=== PATIENT | female | born 1990 | race Caucasian/White ===

== ENCOUNTER 2016-10-28 13:01 | Emergency (ER) | payer OTHER ==
[2016-10-28 16:08] LABS: MEAN CORPUSCULAR HEMOGLOBIN 28.2 pg (27.0-33.0); MEAN CORPUSCULAR HGB CONC 34.1 g/dl (32.0-36.5); MEAN CORPUSCULAR VOLUME 82.8 fl (80.0-96.0); RED CELL DISTRIBUTION WIDTH 11.9 % (11.5-14.5); WHITE BLOOD COUNT 9.3 K/mm3 (4.0-10.0)
--- NOTE | 2016-10-28 16:09 | REP ---
Chest x-ray: Two views. History: Edema. . Comparison study: January 01, 2016 . Findings: The lungs are well inflated and free of infiltrate. The pleural angles are sharp. The heart size is normal. Pulmonary vasculature is not increased. No significant bony abnormality is seen. Impression: Negative chest x-ray. Signed by Jayce Gan MD 10/28/2016 04:00 P
[2016-10-28 16:15] LABS: ALBUMIN 4.1 GM/DL (3.2-5.2); ALBUMIN/GLOBULIN RATIO 1.08 (1.00-1.93); ALKALINE PHOSPHATASE 91 U/L (45-117); ALT/SGPT 19 U/L (12-78); ANION GAP 5 MEQ/L (8-16); AST/SGOT 13 U/L (15-37); BILIRUBIN,DIRECT 0.1 MG/DL (0.0-0.2); BILIRUBIN,TOTAL 0.6 MG/DL (0.2-1.0); BLOOD UREA NITROGEN 7 MG/DL (7-18); CALCIUM LEVEL 9.1 MG/DL (8.5-10.1); CARBON DIOXIDE LEVEL 30 MEQ/L (21-32); CHLORIDE LEVEL 105 MEQ/L (98-107); CREATININE FOR GFR 0.88 MG/DL (0.55-1.02); GLOMERULAR FILTRATION RATE > 60.0 (>60); GLUCOSE, FASTING 86 MG/DL (70-105); POTASSIUM SERUM 3.8 MEQ/L (3.5-5.1); SODIUM LEVEL 140 MEQ/L (136-145); TOTAL PROTEIN 7.9 GM/DL (6.4-8.2)
--- NOTE | 2016-10-28 17:04 | EDDOCDS ---
Physician Documentation [facility] Name: Maxime Miranda Age: 26 yrs Sex: Female : 1990 Arrival Date: 10/28/2016 Time: 13:01 Bed I8 / 16 Private MD: NO PRIMARY PHYSICIAN, . Disposition: 10/28/16 16:52 Discharged to Home/Self Care. Impression: Edema, not elsewhere classified. - Condition is Stable. - Discharge Instructions: Edema. - Medication Reconciliation, Local Pharmacy Hours form. - Follow up: Private Physician; When: 4 - 5 days; Reason: Recheck today's complaints, Continuance of care. - Problem is an ongoing problem. - Symptoms are unchanged. - Notes: elevate legs limit fluid and salt intake Historical: - Allergies: Amoxicillin (Hives, Swelling); PENICILLINS (Hives, Swelling); Zithromax Z-Kang; - Home Meds: 1. Norvasc 10 mg Oral tab 1 tab once daily 2. trazodone 150 mg Oral tab nightly 3. Valium 5 mg Oral tab 1 tab 3 times per day - PMHx: Anxiety; Depression; Hypertension; Seizures; insomnia; - PSHx: ; - Social history: Smoking status: Patient states former smoker of tobacco. No barriers to communication noted, The patient speaks fluent Vietnamese, Speaks appropriately for age. - Family history: Not pertinent. - : The pt / caregiver states he / she is not on anticoagulants. Home medication list is obtained from the patient. - Exposure Risk Screening:: None identified. 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 3 in. (160.02 cm) (R); Pain 3/10; 13:04 Body Mass Index 44.29 (113.40 kg, 160.02 cm) gr2 MDM: 15:37 CBC Ordered. EDMS 15:38 BMP Ordered. EDMS 15:38 BNP Ordered. EDMS 15:38 Liver Profile Ordered. EDMS 15:38 ECG WITH READING ER PHYS+CARDIAG ordered. EDMS 15:39 Chest, 2 View (pa\E\lat) Ordered. EDMS 15:42 Financial registration complete. lg 15:46 [facility] Payment Agreement was scanned into [employer] and attached to record. lg 16:48 BMP Reviewed. ke 16:48 Liver Profile Reviewed. ke 16:48 CBC Reviewed. ke 16:48 BNP Reviewed. ke 16:48 Chest, 2 View (pa\E\lat) Reviewed. ke Signatures: Dispatcher [employer] EDMS Shelby Soliman, Reg Reg lg Jasbir Durham, APPLICATION CONSULTANT APPLICATION CONSULTANT Brad Titus RN RN mlb1 Aline LuoRN RN dsf The chart was reviewed and I authenticate all verbal orders and agree with the evaluation and treatment provided.Attachments: 15:46 [facility] Payment Agreement lg MTDD
--- NOTE | 2016-10-28 17:04 | EDDOCDS ---
Nurse's Notes [facility] Name: Maxime Miranda Age: 26 yrs Sex: Female : 1990 Arrival Date: 10/28/2016 Time: 13:01 Bed I8 / 16 Private MD: NO PRIMARY PHYSICIAN, . Diagnosis: Edema, not elsewhere classified Presentation: 10/28 13:10 Presenting complaint: Patient states: Bilateral lower leg swelling over the past two mlb1 weeks. The patients lower extremity appears normal on examination. Adult Sepsis Screening: The patient does not have new or worsening altered mentation. Patient's respiratory rate is less than 22. Systolic blood pressure is greater than 100. Patient has a qSOFA score of 0- Negative Sepsis Screen. Suicide/Homicide risk assessment- the patient denies having any suicidal and/or homicidal ideations and does not present with any other emotional, behavioral or mental health complaints. Status: Patient is not a industrial services worker or dependent. Transition of care: patient was not received from another setting of care. 13:10 Acuity: CRISTOPHER Level 3 mlb1 13:10 Method Of Arrival: Walkin/Carried/Asstd mlb1 Triage Assessment: 13:12 General: Appears in no apparent distress, comfortable, Behavior is appropriate for age, mlb1 cooperative. Pain: Location: right leg and left leg Pain currently is 8 out of 10 on a pain scale. Quality of pain is described as "discomfort". HIV screening NA for this visit Offered previously. 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 Norvasc 10 mg Oral tab 1 tab once daily 2. trazodone 150 mg Oral tab nightly 3. Valium 5 mg Oral tab 1 tab 3 times per day - PMHx: Anxiety; Depression; Hypertension; Seizures; insomnia; - PSHx: ; - Social history: Smoking status: Patient states former smoker of tobacco. No barriers to communication noted, The patient speaks fluent Albanian, Speaks appropriately for age. - Family history: Not pertinent. - : The pt / caregiver states he / she is not on anticoagulants. Home medication list is obtained from the patient. - Exposure Risk Screening:: None identified. Screenin:03 Screening information is obtained from the patient. Fall risk: No risks identified. dsf Assistance ADL's: requires no assistance with activities of daily living. Abuse/DV Screen: The patient / caregiver reports he/she is: not in a situation that causes fear, pain or injury. Nutritional screening: No deficits noted. Advance Directives: Currently, there is no health care proxy. home support is adequate. Assessment: 15:18 General: Appears in no apparent distress, Behavior is appropriate for age, cooperative. dsf General: Reports 20 lb weight gain in the past 2 months has not changed her diet. Pain: Location: bilateral calf Pain currently is 2 out of 10 on a pain scale. Quality of pain is described as burning, feel like they are going to burst. Neurological: Level of Consciousness is awake, alert, Oriented to person, place, time. Cardiovascular: nonpitting bilateral lower leg swelling . Respiratory: Airway is patent Respiratory effort is even, unlabored, Respiratory pattern is regular, symmetrical, Reports shortness of breath on exertion since 2 months ago. Derm: Skin is pink, warm & dry. Musculoskeletal: Capillary refill < 3 seconds No deformity noted Signs and Symptoms of Compartment Syndrome: no signs of compartment syndrome. 17:02 Adult Sepsis Screening: The patient does not have new or worsening altered mentation. dsf Patient's respiratory rate is less than 22. Systolic blood pressure is greater than 100. Patient has a qSOFA score of 0- Negative Sepsis Screen. General: Appears in no apparent distress, comfortable, Behavior is appropriate for age, cooperative. Neurological: Level of Consciousness is awake, alert. Cardiovascular: Capillary refill < 3 seconds. Respiratory: Airway is patent Respiratory effort is even, unlabored, Respiratory pattern is regular, symmetrical. Derm: Skin is pink, warm & dry. Vital Signs: 13:04 BP 116 / 78; Pulse 68; Resp 18; Temp 97.9(O); Pulse Ox 98% on R/A; Weight 113.4 kg (R); gr2 Height 5 ft. 3 in. (160.02 cm) (R); Pain 3/10; 13:04 Body Mass Index 44.29 (113.40 kg, 160.02 cm) gr2 Vitals: 13:04 Log In Time: October 28, 2016 at 13:04. gr2 ED Course: 13:03 Patient visited by Cosme Chun. gr2 13:03 NO FAM PHY is Private Physician. gr2 13:03 NO PRIMARY PHYSICIAN, . is Private Physician. gr2 13:03 Patient moved to Waiting gr2 13:07 Patient visited by Cosme Chun. gr2 13:07 Patient moved to Pre RCE gr2 13:10 Patient visited by Brad Asif, RN. mlb1 13:11 Triage Initiated mlb1 13:13 Patient visited by Brad Asif, RN. mlb1 15:13 Lona Velez, FRANKLYN is Primary Nurse. mlb1 15:13 Jenelle Murray,FRANKLYN is Primary Nurse. mlb1 15:13 Patient moved to I8 / 16 mlb1 15:16 [facility] ke 15:16 Patient visited by Jasbir Durham FNP. ke 15:16 Patient visited by Jasbir Durham FNP. ke 15:20 Patient visited by Aline Luo RN. dsf 15:46 [facility] Payment Agreement was scanned into [employer] and attached to record. lg 15:47 Patient visited by Jasbir Durham FNP. ke 15:47 Liver Profile Sent. jmb 15:47 BNP Sent. jmb 15:47 BMP Sent. jmb 15:47 CBC Sent. jmb 15:50 EKG done. (by ED staff). Reviewed by Jasbir SAAVEDRA. ct3 16:06 Patient visited by Zahra Ozuna PCA. ct3 16:27 Chest, 2 View (pa\\E\\lat) Returned. EDMS 16:36 Patient visited by Jasbir Durham FNP. ke 17:03 The patient / caregiver is instructed regarding the plan of care and ED course. dsf 17:03 No IV's were initiated during this patient's visit. No procedures done that require dsf assistance. Order Results: Lab Order: CBC; SPEC'M 10/28/16 15:44 Test: WHITE BLOOD COUNT; Value: 9.3; Range: 4.0-10.0; Units: K/mm3; Status: F Test: RED BLOOD COUNT; Value: 5.09; Range: 4.00-5.40; Units: M/mm3; Status: F Test: HEMOGLOBIN; Value: 14.4; Range: 12.0-16.0; Units: g/dl; Status: F Test: HEMATOCRIT; Value: 42.1; Range: 36.0-47.0; Units: %; Status: F Test: MEAN CORPUSCULAR VOLUME; Value: 82.8; Range: 80.0-96.0; Units: fl; Status: F Test: MEAN CORPUSCULAR HEMOGLOBIN; Value: 28.2; Range: 27.0-33.0; Units: pg; Status: F Test: MEAN CORPUSCULAR HGB CONC; Value: 34.1; Range: 32.0-36.5; Units: g/dl; Status: F Test: RED CELL DISTRIBUTION WIDTH; Value: 11.9; Range: 11.5-14.5; Units: %; Status: F Test: PLATELET COUNT, AUTOMATED; Value: 205; Range: 150-450; Units: k/mm3; Status: F Lab Order: [facility]; [facility] 10/28/16 15:44 Test: GLUCOSE, FASTING; Value: 86; Range: 70-105; Units: MG/DL; Status: F Test: BLOOD UREA NITROGEN; Value: 7; Range: 7-18; Units: MG/DL; Status: F Test: CREATININE FOR GFR; Value: 0.88; Range: 0.55-1.02; Units: MG/DL; Status: F Test: GLOMERULAR FILTRATION RATE; Value: > 60.0; Range: >60; Status: F Test: SODIUM LEVEL; Value: 140; Range: 136-145; Units: MEQ/L; Status: F Test: POTASSIUM SERUM; Value: 3.8; Range: 3.5-5.1; Units: MEQ/L; Status: F Test: CHLORIDE LEVEL; Value: 105; Range: 98-107; Units: MEQ/L; Status: F Test: CARBON DIOXIDE LEVEL; Value: 30; Range: 21-32; Units: MEQ/L; Status: F Test: ANION GAP; Value: 5; Range: 8-16; Abnormal: Below low normal; Units: MEQ/L; Status: F Test: CALCIUM LEVEL; Value: 9.1; Range: 8.5-10.1; Units: MG/DL; Status: F Test Note: ; Units are mL/min/1.73 m2 Chronic Kidney Disease Staging per NKF: Stage I & II GFR >=60 Normal to Mildly Decreased Stage III GFR 30-59 Moderately Decreased Stage IV GFR 15-29 Severely Decreased Stage V GFR <15 Very Little GFR Left ESRD GFR <15 on MEDIA SERVICES DIRECTOR Lab Order: BNP; SPEC10/28/16 15:44 Test: BRAIN NATRIURETIC PEPTIDE; Value: 24.4; Range: <100; Units: PG/ML; Status: F Lab Order: Liver Profile; [facility] 15[facility] Test: AST/SGOT; Value: 13; Range: 15-37; Abnormal: Below low normal; Units: U/L; Status: F Test: ALT/SGPT; Value: 19; Range: 12-78; Units: U/L; Status: F Test: ALKALINE PHOSPHATASE; Value: 91; Range: 45-117; Units: U/L; Status: F Test: BILIRUBIN,TOTAL; Value: 0.6; Range: 0.2-1.0; Units: MG/DL; Status: F Test: BILIRUBIN,DIRECT; Value: 0.1; Range: 0.0-0.2; Units: MG/DL; Status: F Test: TOTAL PROTEIN; Value: 7.9; Range: 6.4-8.2; Units: GM/DL; Status: F Test: ALBUMIN; Value: 4.1; Range: 3.2-5.2; Units: GM/DL; Status: F Test: ALBUMIN/GLOBULIN RATIO; Value: 1.08; Range: 1.00-1.93; Status: F Radiology Order: Chest, 2 View (pa\\E\\lat) Test: Chest, 2 View (pa\\E\\lat) REASON FOR EXAMINATION: edema; Chest x-ray: Two views.; ; History: Edema. .; ; Comparison study: January 01, 2016 .; ; Findings: The lungs are well inflated and free of infiltrate. The pleural; angles are sharp. The heart size is normal. Pulmonary vasculature is not; increased. No significant bony abnormality is seen.; ; Impression:; ; Negative chest x-ray.; ; ; Signed by; Jayce Gan MD 10/28/2016 04:00 P; Outcome: 16:52 Discharge ordered by Provider. landy 17:03 Discharge Assessment: Patient awake, alert and oriented x 3. No cognitive and/or dsf functional deficits noted. Patient verbalized understanding of disposition instructions. patient administered narcotics - no. The following High Risk Discharge criteria are identified: None. Discharged to home ambulatory. Condition: stable. Discharge instructions given to patient, Instructed on discharge instructions, follow up and referral plans. Demonstrated understanding of instructions, Pt was receptive of discharge instructions/ teaching. No special radiology studies were completed. Property sent home with patient. 17:03 Patient left the ED. dsf Signatures: Dispatcher [employer] EDMS Shelby Soliman, Flakito Reg lg Jasbir Durham, SUMMER SCHOOL COORDINATOR SUMMER SCHOOL COORDINATOR Brad Titus RN RN mlb1 Zahra Ozuna, REGIONAL PSYCHIATRIC DIRECTOR REGIONAL PSYCHIATRIC DIRECTOR ct3 Aline Luo,RN RN dsf Cosme Chun gr2 Srinivas Morales,RN RN portiab MTDD
--- NOTE | 2016-10-28 21:58 | ECGEPIP ---
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
--- NOTE | 2016-10-30 18:04 | EDDOCDS ---
Physician Documentation [facility] Name: Maxime Miranda Age: 26 yrs Sex: Female : 1990 Arrival Date: 10/28/2016 Time: 13:01 Bed I8 / 16 Private MD: NO PRIMARY PHYSICIAN, . Disposition: 10/28/16 16:52 Discharged to Home/Self Care. Impression: Edema, not elsewhere classified. - Condition is Stable. - Discharge Instructions: Edema. - Medication Reconciliation, Local Pharmacy Hours form. - Follow up: Private Physician; When: 4 - 5 days; Reason: Recheck today's complaints, Continuance of care. - Problem is an ongoing problem. - Symptoms are unchanged. - Notes: elevate legs limit fluid and salt intake Historical: - Allergies: Amoxicillin (Hives, Swelling); PENICILLINS (Hives, Swelling); Zithromax Z-Kang; - Home Meds: 1. Norvasc 10 mg Oral tab 1 tab once daily 2. trazodone 150 mg Oral tab nightly 3. Valium 5 mg Oral tab 1 tab 3 times per day - PMHx: Anxiety; Depression; Hypertension; Seizures; insomnia; - PSHx: ; - Social history: Smoking status: Patient states former smoker of tobacco. No barriers to communication noted, The patient speaks fluent Amharic, Speaks appropriately for age. - Family history: Not pertinent. - : The pt / caregiver states he / she is not on anticoagulants. Home medication list is obtained from the patient. - Exposure Risk Screening:: None identified. 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 3 in. (160.02 cm) (R); Pain 3/10; 13:04 Body Mass Index 44.29 (113.40 kg, 160.02 cm) gr2 MDM: 15:37 CBC Ordered. EDMS 15:38 BMP Ordered. EDMS 15:38 BNP Ordered. EDMS 15:38 Liver Profile Ordered. EDMS 15:38 ECG WITH READING ER PHYS+CARDIAG ordered. EDMS 15:39 Chest, 2 View (pa\E\lat) Ordered. EDMS 15:42 Financial registration complete. lg 15:46 [facility] [place] Agreement was scanned into [employer] and attached to record. lg 16:48 BMP Reviewed. ke 16:48 Liver Profile Reviewed. ke 16:48 CBC Reviewed. ke 16:48 BNP Reviewed. ke 16:48 Chest, 2 View (pa\E\lat) Reviewed. ke 10/29 11:58 T-Sheet-- Draft Copy was scanned into [employer] and attached to record. gb 11:59 ECG/EKG was scanned into [employer] and attached to record. gb Signatures: Dispatcher [employer] EDMS Bernice Brambila, Reg Reg gb Shelby Soliman, Reg Reg lg Jasbir Durham, ACTIVITY COORDINATOR ACTIVITY COORDINATOR Brad Titus, RN RN mlAline McmullenRN RN dsf The chart was reviewed and I authenticate all verbal orders and agree with the evaluation and treatment provided.Attachments: 10/28 15:46 [facility] [place] [place] Agreement 10/29 11:58 T-Sheet-- Draft Copy gb 11:59 ECG/EKG gb Chart Complete MTDD
--- NOTE | 2016-10-30 18:04 | EDDOCDS ---
Nurse's Notes [facility] Name: Maxime Miranda Age: 26 yrs Sex: Female : 1990 Arrival Date: 10/28/2016 Time: 13:01 Bed I8 / 16 Private MD: NO PRIMARY PHYSICIAN, . Diagnosis: Edema, not elsewhere classified Presentation: 10/28 13:10 Presenting complaint: Patient states: Bilateral lower leg swelling over the past two mlb1 weeks. The patients lower extremity appears normal on examination. Adult Sepsis Screening: The patient does not have new or worsening altered mentation. Patient's respiratory rate is less than 22. Systolic blood pressure is greater than 100. Patient has a qSOFA score of 0- Negative Sepsis Screen. Suicide/Homicide risk assessment- the patient denies having any suicidal and/or homicidal ideations and does not present with any other emotional, behavioral or mental health complaints. Status: Patient is not a service station attendant or dependent. Transition of care: patient was not received from another setting of care. 13:10 Acuity: CRISTOPHER Level 3 mlb1 13:10 Method Of Arrival: Walkin/Carried/Asstd mlb1 Triage Assessment: 13:12 General: Appears in no apparent distress, comfortable, Behavior is appropriate for age, mlb1 cooperative. Pain: Location: right leg and left leg Pain currently is 8 out of 10 on a pain scale. Quality of pain is described as "discomfort". HIV screening NA for this visit Offered previously. 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 Norvasc 10 mg Oral tab 1 tab once daily 2. trazodone 150 mg Oral tab nightly 3. Valium 5 mg Oral tab 1 tab 3 times per day - PMHx: Anxiety; Depression; Hypertension; Seizures; insomnia; - PSHx: ; - Social history: Smoking status: Patient states former smoker of tobacco. No barriers to communication noted, The patient speaks fluent Latvian, Speaks appropriately for age. - Family history: Not pertinent. - : The pt / caregiver states he / she is not on anticoagulants. Home medication list is obtained from the patient. - Exposure Risk Screening:: None identified. Screenin:03 Screening information is obtained from the patient. Fall risk: No risks identified. dsf Assistance ADL's: requires no assistance with activities of daily living. Abuse/DV Screen: The patient / caregiver reports he/she is: not in a situation that causes fear, pain or injury. Nutritional screening: No deficits noted. Advance Directives: Currently, there is no health care proxy. home support is adequate. Assessment: 15:18 General: Appears in no apparent distress, Behavior is appropriate for age, cooperative. dsf General: Reports 20 lb weight gain in the past 2 months has not changed her diet. Pain: Location: bilateral calf Pain currently is 2 out of 10 on a pain scale. Quality of pain is described as burning, feel like they are going to burst. Neurological: Level of Consciousness is awake, alert, Oriented to person, place, time. Cardiovascular: nonpitting bilateral lower leg swelling . Respiratory: Airway is patent Respiratory effort is even, unlabored, Respiratory pattern is regular, symmetrical, Reports shortness of breath on exertion since 2 months ago. Derm: Skin is pink, warm & dry. Musculoskeletal: Capillary refill < 3 seconds No deformity noted Signs and Symptoms of Compartment Syndrome: no signs of compartment syndrome. 17:02 Adult Sepsis Screening: The patient does not have new or worsening altered mentation. dsf Patient's respiratory rate is less than 22. Systolic blood pressure is greater than 100. Patient has a qSOFA score of 0- Negative Sepsis Screen. General: Appears in no apparent distress, comfortable, Behavior is appropriate for age, cooperative. Neurological: Level of Consciousness is awake, alert. Cardiovascular: Capillary refill < 3 seconds. Respiratory: Airway is patent Respiratory effort is even, unlabored, Respiratory pattern is regular, symmetrical. Derm: Skin is pink, warm & dry. Vital Signs: 13:04 BP 116 / 78; Pulse 68; Resp 18; Temp 97.9(O); Pulse Ox 98% on R/A; Weight 113.4 kg (R); gr2 Height 5 ft. 3 in. (160.02 cm) (R); Pain 3/10; 13:04 Body Mass Index 44.29 (113.40 kg, 160.02 cm) gr2 Vitals: 13:04 Log In Time: October 28, 2016 at 13:04. gr2 ED Course: 13:03 Patient visited by Cosme Chnu. gr2 13:03 NO FAM PHY is Private Physician. gr2 13:03 NO PRIMARY PHYSICIAN, . is Private Physician. gr2 13:03 Patient moved to Waiting gr2 13:07 Patient visited by Cosme Chun. gr2 13:07 Patient moved to Pre RCE gr2 13:10 Patient visited by Brad Asif, RN. mlb1 13:11 Triage Initiated mlb1 13:13 Patient visited by Brad Asif, RN. mlb1 15:13 Lona Velez, FRANKLYN is Primary Nurse. mlb1 15:13 Jenelle Murray,FRANKLYN is Primary Nurse. mlb1 15:13 Patient moved to I8 / 16 mlb1 15:16 [facility] ke 15:16 Patient visited by Jasbir Durham FNP. ke 15:16 Patient visited by Jasbir Durham FNP. ke 15:20 Patient visited by Aline Luo RN. dsf 15:46 [facility] [place] Agreement was scanned into [employer] and attached to record. lg 15:47 Patient visited by Jasbir Durham FNP. ke 15:47 Liver Profile Sent. jmb 15:47 BNP Sent. jmb 15:47 BMP Sent. jmb 15:47 CBC Sent. jmb 15:50 EKG done. (by ED staff). Reviewed by Jasbir SAAVEDRA. ct3 16:06 Patient visited by Zahra Ozuna PCA. ct3 16:27 Chest, 2 View (pa\\E\\lat) Returned. EDMS 16:36 Patient visited by Jasbir Durham FNP. ke 17:03 The patient / caregiver is instructed regarding the plan of care and ED course. dsf 17:03 No IV's were initiated during this patient's visit. No procedures done that require dsf assistance. 22:11 EKG-ADULT Returned. EDMS 10/29 11:58 T-Sheet-- Draft Copy was scanned into [employer] and attached to record. gb 11:59 ECG/EKG was scanned into [employer] and attached to record. gb Order Results: Lab Order: CBC; SPEC'M 10/28/16 15:44 Test: WHITE BLOOD COUNT; Value: 9.3; Range: 4.0-10.0; Units: K/mm3; Status: F Test: RED BLOOD COUNT; Value: 5.09; Range: 4.00-5.40; Units: M/mm3; Status: F Test: HEMOGLOBIN; Value: 14.4; Range: 12.0-16.0; Units: g/dl; Status: F Test: HEMATOCRIT; Value: 42.1; Range: 36.0-47.0; Units: %; Status: F Test: MEAN CORPUSCULAR VOLUME; Value: 82.8; Range: 80.0-96.0; Units: fl; Status: F Test: MEAN CORPUSCULAR HEMOGLOBIN; Value: 28.2; Range: 27.0-33.0; Units: pg; Status: F Test: MEAN CORPUSCULAR HGB CONC; Value: 34.1; Range: 32.0-36.5; Units: g/dl; Status: F Test: RED CELL DISTRIBUTION WIDTH; Value: 11.9; Range: 11.5-14.5; Units: %; Status: F Test: PLATELET COUNT, AUTOMATED; Value: 205; Range: 150-450; Units: k/mm3; Status: F Lab Order: [facility]; SPEC'M 10/28/16 15:44 Test: GLUCOSE, FASTING; Value: 86; Range: 70-105; Units: MG/DL; Status: F Test: BLOOD UREA NITROGEN; Value: 7; Range: 7-18; Units: MG/DL; Status: F Test: CREATININE FOR GFR; Value: 0.88; Range: 0.55-1.02; Units: MG/DL; Status: F Test: GLOMERULAR FILTRATION RATE; Value: > 60.0; Range: >60; Status: F Test: SODIUM LEVEL; Value: 140; Range: 136-145; Units: MEQ/L; Status: F Test: POTASSIUM SERUM; Value: 3.8; Range: 3.5-5.1; Units: MEQ/L; Status: F Test: CHLORIDE LEVEL; Value: 105; Range: 98-107; Units: MEQ/L; Status: F Test: CARBON DIOXIDE LEVEL; Value: 30; Range: 21-32; Units: MEQ/L; Status: F Test: ANION GAP; Value: 5; Range: 8-16; Abnormal: Below low normal; Units: MEQ/L; Status: F Test: CALCIUM LEVEL; Value: 9.1; Range: 8.5-10.1; Units: MG/DL; Status: F Test Note: ; Units are mL/min/1.73 m2 Chronic Kidney Disease Staging per NKF: Stage I & II GFR >=60 Normal to Mildly Decreased Stage III GFR 30-59 Moderately Decreased Stage IV GFR 15-29 Severely Decreased Stage V GFR <15 Very Little GFR Left ESRD GFR <15 on LOGGING TRACTOR OPERATOR SWAMP Lab Order: BNP; SPEC'M 10/28/16 15:44 Test: BRAIN NATRIURETIC PEPTIDE; Value: 24.4; Range: <100; Units: PG/ML; Status: F Lab Order: Liver Profile; SPEC'M 10/28/16 15:44 Test: AST/SGOT; Value: 13; Range: 15-37; Abnormal: Below low normal; Units: U/L; Status: F Test: ALT/SGPT; Value: 19; Range: 12-78; Units: U/L; Status: F Test: ALKALINE PHOSPHATASE; Value: 91; Range: 45-117; Units: U/L; Status: F Test: BILIRUBIN,TOTAL; Value: 0.6; Range: 0.2-1.0; Units: MG/DL; Status: F Test: BILIRUBIN,DIRECT; Value: 0.1; Range: 0.0-0.2; Units: MG/DL; Status: F Test: TOTAL PROTEIN; Value: 7.9; Range: 6.4-8.2; Units: GM/DL; Status: F Test: ALBUMIN; Value: 4.1; Range: 3.2-5.2; Units: GM/DL; Status: F Test: ALBUMIN/GLOBULIN RATIO; Value: 1.08; Range: 1.00-1.93; Status: F Radiology Order: EKG-ADULT Test: EKG-ADULT REASON FOR EXAMINATION: Shortness of Breath; Stationary ECG Study; [facility] - ED; ; Test Date: 2016-10-28; Pat Name: MAXIME MIRANDA Department:; Room: -; 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 .; ; Comparison study: January 01, 2016 .; ; Findings: The lungs are well inflated and free of infiltrate. The pleural; angles are sharp. The heart size is normal. Pulmonary vasculature is not; increased. No significant bony abnormality is seen.; ; Impression:; ; Negative chest x-ray.; ; ; Signed by; Jayce Gan MD 10/28/2016 04:00 P; Outcome: 10/28 16:52 Discharge ordered by Provider. landy 17:03 Discharge Assessment: Patient awake, alert and oriented x 3. No cognitive and/or dsf functional deficits noted. Patient verbalized understanding of disposition instructions. patient administered narcotics - no. The following High Risk Discharge criteria are identified: None. Discharged to home ambulatory. Condition: stable. Discharge instructions given to patient, Instructed on discharge instructions, follow up and referral plans. Demonstrated understanding of instructions, Pt was receptive of discharge instructions/ teaching. No special radiology studies were completed. Property sent home with patient. 17:03 Patient left the ED. dsf Signatures: Dispatcher [employer] EDMS Bernice Brambila, Reg Reg gb Shelby Soliman, Reg Reg lg Jasbir Durham, POWER SYSTEM DISPATCHER POWER SYSTEM DISPATCHER Brad Titus RN RN mlb1 Zahra Ozuna, SITE ADMINISTRATOR SITE ADMINISTRATOR ct3 Aline Luo RN RN dsf Cosme Chun gr2 Srinivas Morales RN RN jmb Chart Complete MTDD
--- NOTE | 2016-10-30 18:04 | EDDOCDS ---
Physician Documentation [facility] Name: Maxime Miranda Age: 26 yrs Sex: Female : 1990 Arrival Date: 10/28/2016 Time: 13:01 Bed I8 / 16 Private MD: NO PRIMARY PHYSICIAN, . Disposition: 10/28/16 16:52 Discharged to Home/Self Care. Impression: Edema, not elsewhere classified. - Condition is Stable. - Discharge Instructions: Edema. - Medication Reconciliation, Local Pharmacy Hours form. - Follow up: Private Physician; When: 4 - 5 days; Reason: Recheck today's complaints, Continuance of care. - Problem is an ongoing problem. - Symptoms are unchanged. - Notes: elevate legs limit fluid and salt intake Historical: - Allergies: Amoxicillin (Hives, Swelling); PENICILLINS (Hives, Swelling); Zithromax Z-Kang; - Home Meds: 1. Norvasc 10 mg Oral tab 1 tab once daily 2. trazodone 150 mg Oral tab nightly 3. Valium 5 mg Oral tab 1 tab 3 times per day - PMHx: Anxiety; Depression; Hypertension; Seizures; insomnia; - PSHx: ; - Social history: Smoking status: Patient states former smoker of tobacco. No barriers to communication noted, The patient speaks fluent Georgian, Speaks appropriately for age. - Family history: Not pertinent. - : The pt / caregiver states he / she is not on anticoagulants. Home medication list is obtained from the patient. - Exposure Risk Screening:: None identified. 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 3 in. (160.02 cm) (R); Pain 3/10; 13:04 Body Mass Index 44.29 (113.40 kg, 160.02 cm) gr2 MDM: 15:37 CBC Ordered. EDMS 15:38 BMP Ordered. EDMS 15:38 BNP Ordered. EDMS 15:38 Liver Profile Ordered. EDMS 15:38 ECG WITH READING ER PHYS+CARDIAG ordered. EDMS 15:39 Chest, 2 View (pa\E\lat) Ordered. EDMS 15:42 Financial registration complete. lg 15:46 [facility] [place] was scanned into [employer] and attached to record. lg 16:48 BMP Reviewed. ke 16:48 Liver Profile Reviewed. ke 16:48 CBC Reviewed. ke 16:48 BNP Reviewed. ke 16:48 Chest, 2 View (pa\E\lat) Reviewed. ke 10/29 11:58 T-Sheet-- Draft Copy was scanned into [employer] and attached to record. gb 11:59 ECG/EKG was scanned into [employer] and attached to record. gb Signatures: Dispatcher [employer] EDMS Bernice Brabmila, Reg Reg gb Shelby Soliman, Reg Reg lg Jasbir Durham, WATERPROOF BAG SEWER WATERPROOF BAG SEWER Brad Titus, RN RN mlAline McmullenRN RN dsf The chart was reviewed and I authenticate all verbal orders and agree with the evaluation and treatment provided.Attachments: 10/28 15:46 [facility] [place] Agreement 10/29 11:58 T-Sheet-- Draft Copy gb 11:59 ECG/EKG gb Chart Complete MTDD
== END 2016-10-28 17:03 | disposition home or self-care (01) ==
LOC: M ED 13:01
DX: R60.0 Localized edema (principal); I10 Essential (primary) hypertension; F32.9 Major depressive disorder, single episode, unspecified; F41.9 Anxiety disorder, unspecified; R56.9 Unspecified convulsions; G47.00 Insomnia, unspecified; Z79.899 Other long term (current) drug therapy; Z88.0 Allergy status to penicillin; Z88.1 Allergy status to other antibiotic agents; Z87.891 Personal history of nicotine dependence

== ENCOUNTER → 2016-12-21 | Outpatient (CLI) | payer OTHER ==
[2016-12-21 15:25] LABS: FREE T4 0.96 NG/DL (0.76-1.46)
== END ==
LOC: M LAB 13:38
PROVIDERS: ATTEND Family Medicine Addiction Medicine
DX: R63.5 Abnormal weight gain (principal)

== ENCOUNTER 2017-03-09 20:50 | Emergency (ER) | payer OTHER ==
[2017-03-09] MEDS ORDERED: HYDR25TA6 (21:01)
[2017-03-09] MEDS ORDERED: DIAZ5TAB (21:01)
[2017-03-09] MEDS ORDERED: IBUP-1114 PO (21:01)
[2017-03-09] MEDS ORDERED: LEVO75TA4 (21:01)
[2017-03-09] MEDS ORDERED: TRAZ1TAB14 (21:01)
[2017-03-09] MEDS ORDERED: PERCOCET 5MG/325MG TAB PO ONE (21:30)
[2017-03-09] MEDS ORDERED: NS 1,000 ML IV SCH (22:20)
[2017-03-09] MEDS ORDERED: KETOROLAC 30 MG/ML VIAL (J1885) IV ONE (22:30)
[2017-03-09] MEDS ORDERED: MORPHINE 2 MG/ML 1ML SYRINGE IV PRN (22:30)
[2017-03-09] MEDS ORDERED: ONDANSETRON 4MG/2ML VIAL (J2405) IV ONE (22:30)
--- NOTE | 2017-03-09 22:50 | REPUSA ---
Clinical history: Pain. Findings: Real-time transabdominal and transvaginal ultrasound images of the pelvis were obtained. A retroverted uterus is noted, measuring 11.8 x 5.0 x 6.4 cm. The uterus demonstrates normal echotextur e and echogenicity. The endometrial stripe measures 9 mm and is within normal limits. The right ovary measures 3.8 x 3.1 x 4.1 c. There is a simple right ovarian cyst measuring 2.1 x 5.1 x 1.9 cm. The l eft ovary measures 2.9 x 1.9 x 3.1 cm. No adnexal masses are seen. Color Doppler flow is seen withi n both ovaries. There is no evidence of free fluid. Impression: Simple left ovarian cyst. Otherwise unremarkable ultrasound examination of the pelvis.
[2017-03-09 23:08] LABS: BASO # 0.1 K/mm3 (0.0-0.2); BASO % 0.5 % (0.0-1.0); EOS # 0.3 K/mm3 (0.0-0.50); EOS % 2.1 % (0.0-3.0); LARGE UNSTAINED CELL # 0.2 K/mm3 (0.0-0.4); LARGE UNSTAINED CELL % 1.5 % (0.0-4.0); LYMPH # 3.4 K/mm3 (1.5-6.5); LYMPH % 24.1 % (24.0-44.0); MEAN CORPUSCULAR HEMOGLOBIN 28.4 pg (27.0-33.0); MEAN CORPUSCULAR HGB CONC 35.1 g/dl (32.0-36.5); MEAN CORPUSCULAR VOLUME 80.9 fl (80.0-96.0); MONO # 0.7 K/mm3 (0.0-0.8); MONO % 4.9 % (0.0-5.0); NEUTROPHILS % 66.9 % (36.0-66.0); PLATELET COUNT, AUTOMATED 265 k/mm3 (150-450); RED CELL DISTRIBUTION WIDTH 12.7 % (11.5-14.5); WHITE BLOOD COUNT 13.4 K/mm3 (4.0-10.0)
[2017-03-09 23:20] LABS: INR 0.95
[2017-03-09 23:40] LABS: ALBUMIN 3.9 GM/DL (3.2-5.2); ALBUMIN/GLOBULIN RATIO 1.08 (1.00-1.93); ALKALINE PHOSPHATASE 90 U/L (45-117); ALT/SGPT 18 U/L (12-78); ANION GAP 8 MEQ/L (8-16); AST/SGOT 12 U/L (15-37); BILIRUBIN,DIRECT < 0.1 MG/DL (0.0-0.2); BILIRUBIN,TOTAL 0.4 MG/DL (0.2-1.0); BLOOD UREA NITROGEN 7 MG/DL (7-18); CALCIUM LEVEL 9.4 MG/DL (8.5-10.1); CARBON DIOXIDE LEVEL 29 MEQ/L (21-32); CHLORIDE LEVEL 99 MEQ/L (98-107); CREATININE FOR GFR 0.81 MG/DL (0.55-1.02); GLOMERULAR FILTRATION RATE > 60.0 (>60); GLUCOSE, FASTING 92 MG/DL (70-105); POTASSIUM SERUM 3.5 MEQ/L (3.5-5.1); SODIUM LEVEL 136 MEQ/L (136-145); TOTAL PROTEIN 7.5 GM/DL (6.4-8.2)
--- NOTE | 2017-03-09 23:40 | REPUSA ---
CT of the abdomen and pelvis without contrast Clinical statement: Pain. Technique: Multiple axial CT images were obtained from the base of the lungs to the floor of the pelv is utilizing 5 mm axial slices without administration of contrast. Coronal and sagittal reconstructio ns were also obtained. Comparison: 05/16/2015. Findings: Chest: The visualized lung bases are clear. Abdomen: The kidneys are normal in size bilaterally. There is no evidence of hydronephrosis or nephro lithiasis. The liver, spleen, pancreas, gallbladder and adrenal glands are unremarkable. The aorta de monstrates normal caliber and contour. There is no abdominal lymphadenopathy or ascites. Pelvis: The bowel is unremarkable, with no obstructive or inflammatory changes The appendix is normal . The urinary bladder is within normal limits. There is no pelvic lymphadenopathy or ascites. The oth er pelvic structures appear unremarkable. Bones: There are no suspicious osseous abnormalities seen. Impression: Unremarkable CT examination of the abdomen and pelvis.
[2017-03-10] MEDS ORDERED: NAPR500T PO (00:15)
[2017-03-10] MEDS ORDERED: ZOFR4TAB3 PO (00:15)
[2017-03-10 00:24] VITALS: BP 114/76
[2017-03-10] MEDS ORDERED: NORCO 5/325MG TABLET (BULK FOR ED) PO ONE (00:30)
[2017-07-20] MEDS ORDERED: VENL75CA47 (20:36)
[2017-07-20] MEDS ORDERED: AMLO5TAB2 (20:36)
[2017-07-20] MEDS ORDERED: LEVO100T5 (20:36)
[2017-07-20] MEDS ORDERED: HYDR25TAB (20:36)
== END 2017-03-10 00:32 | disposition home or self-care (01) ==
LOC: M ED 23:43
DX: N83.292 Other ovarian cyst, left side (principal); R10.9 Unspecified abdominal pain; I10 Essential (primary) hypertension; F41.9 Anxiety disorder, unspecified; F32.9 Major depressive disorder, single episode, unspecified; Z79.899 Other long term (current) drug therapy; Z88.0 Allergy status to penicillin

== ENCOUNTER → 2017-05-20 | Outpatient (REF) | payer OTHER, MEDICAID ==
[~2017-05-20] MED LIST: AMLO5TAB2; DIAZ5TAB; HYDR25TA6; HYDR25TAB; IBUP-1114 PO; LEVO100T5; LEVO75TA4; NAPR500T PO; TRAZ1TAB14; VENL75CA47; ZOFR4TAB3 PO
== END ==
LOC: M LAB REF 09:45
PROVIDERS: ATTEND Family Medicine Addiction Medicine
DX: E03.8 Other specified hypothyroidism (principal)

== ENCOUNTER → 2017-06-04 | Outpatient (REF) | LOC: M LAB 10:58 | PROVIDERS: ATTEND Nurse Practitioner Adult Health | DX: Z02.9 Encounter for administrative examinations, unspecified (principal) ==

== ENCOUNTER → 2017-10-25 | Outpatient (REF) | payer OTHER, MEDICAID ==
[2017-10-25 15:39] LABS: INFLUENZA A AMPLIFICATION NEGATIVE (NEGATIVE); INFLUENZA B AMPLIFICATION NEGATIVE (NEGATIVE); RSV AMPLIFICATION NEGATIVE (NEGATIVE)
== END ==
LOC: M LAB REF 14:38
DX: J09.X2 Influenza due to identified novel influenza A virus with other respiratory manifestations (principal)

== ENCOUNTER → 2018-03-25 | Outpatient (REF) | payer OTHER, MEDICAID ==
[2018-03-25 11:03] LABS: ALBUMIN 3.9 GM/DL (3.2-5.2); ALBUMIN/GLOBULIN RATIO 1.05 (1.00-1.93); ALKALINE PHOSPHATASE 78 U/L (45-117); ALT/SGPT 20 U/L (12-78); ANION GAP 8 MEQ/L (8-16); AST/SGOT 17 U/L (7-37); BILIRUBIN,TOTAL 0.4 MG/DL (0.2-1.0); BLOOD UREA NITROGEN 10 MG/DL (7-18); CALCIUM LEVEL 8.5 MG/DL (8.5-10.1); CARBON DIOXIDE LEVEL 27 MEQ/L (21-32); CHLORIDE LEVEL 105 MEQ/L (98-107); CHOLESTEROL LEVEL 169 MG/DL (<200); CHOLESTEROL RISK RATIO 3.755 (<5); CREATININE FOR GFR 0.78 MG/DL (0.55-1.30); GLOMERULAR FILTRATION RATE > 60.0 (>60); GLUCOSE, FASTING 96 MG/DL (70-100); HDL CHOLESTEROL 45 MG/DL (>40); LDL CHOLESTEROL 108.6 MG/DL (<100); NON-HDL-C 124 MG/DL; POTASSIUM SERUM 3.3 MEQ/L (3.5-5.1); SODIUM LEVEL 140 MEQ/L (136-145); TOTAL PROTEIN 7.6 GM/DL (6.4-8.2); TRIGLYCERIDES LEVEL 77 MG/DL (<150)
== END ==
LOC: M LAB REF 10:26
DX: E03.8 Other specified hypothyroidism (principal)
CPT/HCPCS: 84443

== ENCOUNTER → 2018-06-01 | Outpatient (CLI) | payer OTHER | LOC: M RAD 15:21 | DX: N85.00 Endometrial hyperplasia, unspecified (principal); N83.292 Other ovarian cyst, left side; R10.32 Left lower quadrant pain | CPT/HCPCS: 76856 ==

== ENCOUNTER → 2018-07-05 | Outpatient (REF) | payer OTHER | LOC: M SFHCPLAZ 09:58 | DX: J20.9 Acute bronchitis, unspecified (principal) ==

== ENCOUNTER → 2018-07-06 | Outpatient (REF) | payer OTHER ==
[2018-07-09 16:17] LABS: HPV HYBRID CAPTURE II Negative (Negative)
== END ==
LOC: M LAB REF 09:07
DX: Z12.4 Encounter for screening for malignant neoplasm of cervix (principal); R87.5 Abnormal microbiological findings in specimens from female genital organs
CPT/HCPCS: 88142

== ENCOUNTER → 2018-07-13 | Outpatient (CLI) | payer OTHER ==
[2018-07-13 12:37] LABS: HEMOGLOBIN 14.4 g/dl (12.0-15.5); MEAN CORPUSCULAR HEMOGLOBIN 27.6 pg (27.0-33.0); MEAN CORPUSCULAR HGB CONC 33.5 g/dl (32.0-36.5); MEAN CORPUSCULAR VOLUME 82.5 fl (80.0-96.0); PLATELET COUNT, AUTOMATED 249 10^3/uL (150-450); RED BLOOD COUNT 5.21 10^6/uL (4.00-5.40); RED CELL DISTRIBUTION WIDTH 12.4 % (11.5-14.5); WHITE BLOOD COUNT 9.8 10^3/uL (4.0-10.0)
[2018-07-13 13:03] LABS: GOLD SPEC TUBE RECIEVED
[2018-07-13 13:12] LABS: ALBUMIN 3.9 GM/DL (3.2-5.2); ALBUMIN/GLOBULIN RATIO 1.03 (1.00-1.93); ALKALINE PHOSPHATASE 84 U/L (45-117); ALT/SGPT 19 U/L (12-78); ANION GAP 6 MEQ/L (8-16); AST/SGOT 15 U/L (7-37); BILIRUBIN,TOTAL 0.4 MG/DL (0.2-1.0); BLOOD UREA NITROGEN 12 MG/DL (7-18); CALCIUM LEVEL 9.2 MG/DL (8.5-10.1); CARBON DIOXIDE LEVEL 31 MEQ/L (21-32); CHLORIDE LEVEL 101 MEQ/L (98-107); CHOLESTEROL LEVEL 204 MG/DL (<200); CHOLESTEROL RISK RATIO 3.923 (<5); CREATININE FOR GFR 0.94 MG/DL (0.55-1.30); FREE T4 1.12 NG/DL (0.76-1.46); GLOMERULAR FILTRATION RATE > 60.0 (>60); GLUCOSE, FASTING 86 MG/DL (70-100); HDL CHOLESTEROL 52 MG/DL (>40); LDL CHOLESTEROL 134 MG/DL (<100); NON-HDL-C 152 MG/DL; POTASSIUM SERUM 3.9 MEQ/L (3.5-5.1); SODIUM LEVEL 138 MEQ/L (136-145); TOTAL PROTEIN 7.7 GM/DL (6.4-8.2); TRIGLYCERIDES LEVEL 90 MG/DL (<150)
[2018-07-13 13:37] LABS: MALB URINE SIEMENS 9.5 MG/L; MAU/CREAT RATIO 6.5 MCG/MG (0.0-30.0)
[2018-07-13 13:51] LABS: HEPATITIS C VIRUS ABY INDEX < 0.0 INDEX (<0.8); HIV 1&2 SCREEN CENTAUR NEGATIVE (NEGATIVE)
== END ==
LOC: M LAB 12:02
DX: I10 Essential (primary) hypertension (principal)
CPT/HCPCS: 71046

== ENCOUNTER 2018-07-20 12:45 | Emergency (ER) | payer OTHER ==
[2018-07-20] MEDS: KETOROLAC TROMETHAMINE 10 MG TAB PO (14:38)
== END 2018-07-20 15:22 | disposition home or self-care (01) ==
LOC: M ED 12:45
DX: Z04.1 Encounter for examination and observation following transport accident (principal); M54.5 Low back pain; E03.9 Hypothyroidism, unspecified; K21.9 Gastro-esophageal reflux disease without esophagitis; F33.9 Major depressive disorder, recurrent, unspecified; F41.9 Anxiety disorder, unspecified; F17.200 Nicotine dependence, unspecified, uncomplicated; Z86.69 Personal history of other diseases of the nervous system and sense organs; Z88.0 Allergy status to penicillin; Z79.890 Hormone replacement therapy; Z79.899 Other long term (current) drug therapy; Z79.51 Long term (current) use of inhaled steroids
CPT/HCPCS: 72072

== ENCOUNTER → 2019-03-08 | Outpatient (REF) | payer OTHER ==
[~2019-03-08] MED LIST changes: -AMLO5TAB2; +AMLO5TAB6; +FLUTISP; +NAPR-837 PO; -NAPR500T PO; +VENTAER; +ZOFR4TAB14 PO; -ZOFR4TAB3 PO
[2019-03-08 14:45] LABS: BLOOD UREA NITROGEN 10 MG/DL (7-18); CARBON DIOXIDE LEVEL 29 MEQ/L (21-32); CHLORIDE LEVEL 104 MEQ/L (98-107); CREATININE FOR GFR 0.74 MG/DL (0.55-1.30); GLOMERULAR FILTRATION RATE > 60.0 (>60); GLUCOSE, FASTING 95 MG/DL (70-100); POTASSIUM SERUM 3.7 MEQ/L (3.5-5.1); SODIUM LEVEL 139 MEQ/L (136-145); THYROID STIMULATING HORMONE 0.174 uIU/ML (0.358-3.740)
[2019-03-08 15:07] LABS: CREATININE, URINE 75.2 MG/DL; MALB URINE SIEMENS 5.5 MG/L; MAU/CREAT RATIO 7.3 MCG/MG (0.0-30.0)
[2019-03-08 15:26] LABS: HIV 1&2 SCREEN CENTAUR NEGATIVE (NEGATIVE)
[2019-03-08 15:47] LABS: CHLAMYDIA DNA AMPLIFICATION NEGATIVE (NEGATIVE); GC DNA AMPLIFICATION NEGATIVE (NEGATIVE)
== END ==
LOC: M SFHCPLAZ 11:21
PROVIDERS: ATTEND Family Medicine
DX: Z11.3 Encounter for screening for infections with a predominantly sexual mode of transmission (principal); Z11.4 Encounter for screening for human immunodeficiency virus [HIV]; I10 Essential (primary) hypertension; E03.9 Hypothyroidism, unspecified

== ENCOUNTER → 2020-05-19 | Outpatient (CLI) | payer OTHER ==
[~2020-05-19] MED LIST changes: +AMLO1TAB24; -AMLO5TAB6
== END ==
LOC: M LABSMTC 11:50
PROVIDERS: ATTEND Anesthesiology
DX: Z01.812 Encounter for preprocedural laboratory examination (principal); Z20.828 Contact with and (suspected) exposure to other viral communicable diseases
CPT/HCPCS: C9803; U0003

== ENCOUNTER 2020-05-24 08:12 | Day surgery (SDC) | payer OTHER ==
[~2020-05-24] VITALS: Ht 160 cm; Wt 102.1 kg
[~2020-05-24 08:12] MED LIST changes: +NS 1,000 ML IV ONE
[2020-05-24] MEDS ORDERED: propofoL 200 MG/20 ML VIAL As Ordered ONE ×2 (09:25→09:50)
[2020-05-24] MEDS ORDERED: LIDOCAINE 2% 100MG/5ML SDV (FOR ANES.) As Ordered ONE (09:26)
[2020-05-24] MEDS ORDERED: fentaNYL 100 MCG/2 ML INJECTION (J3010) As Ordered ONE (09:27)
[2020-05-24 10:25] VITALS: BP 133/97
--- NOTE | 2020-05-29 11:37 | ROOR ---
Patient Name: Maxime Miranda Procedure Date: 05/24/2020 9:22 AM Date of : 1990 Age: 29 Room: [facility] Gender: Female Note Status: Finalized Procedure: Upper GI endoscopy Indications: Dyspepsia, Dysphagia Providers: Tree Jenkins MD Referring MD: Cathie Zapata MD Requesting Provider: Medicines: Monitored Anesthesia Care Complications: No immediate complications. Procedure: Pre-Anesthesia Assessment: - Prior to the procedure, a History and Physical was performed, and patient medications and allergies were reviewed. The patient is competent. The risks and benefits of the procedure and the sedation options and risks were discussed with the patient. All questions were answered and informed consent was obtained. Patient identification and proposed procedure were verified by the physician, the nurse and the anesthesiologist in the procedure room. Mental Status Examination: alert and oriented. Airway Examination: normal oropharyngeal airway and neck mobility. Respiratory Examination: clear to auscultation. CV Examination: normal. Prophylactic Antibiotics: The patient does not require prophylactic antibiotics. Prior Anticoagulants: The patient has taken no previous anticoagulant or antiplatelet agents. ASA Grade Assessment: II - A patient with mild systemic disease. After reviewing the risks and benefits, the patient was deemed in satisfactory condition to undergo the procedure. The anesthesia plan was to use monitored anesthesia care (MAC). Immediately prior to administration of medications, the patient was re-assessed for adequacy to receive sedatives. The heart rate, respiratory rate, oxygen saturations, blood pressure, adequacy of pulmonary ventilation, and response to care were monitored throughout the procedure. The physical status of the patient was re-assessed after the procedure. The Endoscope was introduced through the mouth, and advanced to the second part of duodenum. The upper GI endoscopy was accomplished without difficulty. The patient tolerated the procedure well. Findings: No endoscopic abnormality was evident in the esophagus to explain the patient's complaint of dysphagia. Biopsies were obtained from the proximal and distal esophagus with cold forceps for histology of suspected eosinophilic esophagitis. Verification of patient identification for the specimen was done by the physician and nurse using the patient's name, date and medical record number. Estimated blood loss was minimal. The Z-line was regular and was found 36 cm from the incisors. Scattered mild inflammation characterized by erythema and granularity was found in the gastric antrum. Biopsies were taken with a cold forceps for Helicobacter pylori testing. The duodenal bulb and second portion of the duodenum were normal. Biopsies for histology were taken with a cold forceps for evaluation of celiac disease. Impression: - No endoscopic esophageal abnormality to explain patient's dysphagia. Biopsied. - Z-line regular, 36 cm from the incisors. - Gastritis. Biopsied. - Normal duodenal bulb and second portion of the duodenum. Biopsied. Recommendation: - Patient has a contact number available for emergencies. The signs and symptoms of potential delayed complications were discussed with the patient. Return to normal activities tomorrow. Written discharge instructions were provided to the patient. - High fiber diet. - Continue present medications. - Follow an antireflux regimen. - Telephone GI clinic for pathology results in 2 weeks. - Return to primary care physician. Tree Jenkins MD Tree Jenkins MD 05/24/2020 11:08:01 AM Electronically signed by Tree Jenkins MD Number of Addenda: 0 Note Initiated On: 05/24/2020 9:22 AM Estimated Blood Loss: Estimated blood loss was minimal.
--- NOTE | 2020-05-29 11:38 | ROOR ---
Patient Name: Maxime Miranda Procedure Date: 05/24/2020 9:23 AM Date of : 1990 Age: 29 Room: [facility] Gender: Female Note Status: Finalized Procedure: Colonoscopy Indications: Screening for colorectal malignant neoplasm Providers: Tree Jenkins MD Referring MD: Cathie Zapata MD Requesting Provider: Medicines: Monitored Anesthesia Care Complications: No immediate complications. Procedure: Pre-Anesthesia Assessment: - Prior to the procedure, a History and Physical was performed, and patient medications and allergies were reviewed. The patient is competent. The risks and benefits of the procedure and the sedation options and risks were discussed with the patient. All questions were answered and informed consent was obtained. Patient identification and proposed procedure were verified by the physician, the nurse and the anesthesiologist in the procedure room. Mental Status Examination: alert and oriented. Airway Examination: normal oropharyngeal airway and neck mobility. Respiratory Examination: clear to auscultation. CV Examination: normal. Prophylactic Antibiotics: The patient does not require prophylactic antibiotics. Prior Anticoagulants: The patient has taken no previous anticoagulant or antiplatelet agents. ASA Grade Assessment: II - A patient with mild systemic disease. After reviewing the risks and benefits, the patient was deemed in satisfactory condition to undergo the procedure. The anesthesia plan was to use monitored anesthesia care (MAC). Immediately prior to administration of medications, the patient was re-assessed for adequacy to receive sedatives. The heart rate, respiratory rate, oxygen saturations, blood pressure, adequacy of pulmonary ventilation, and response to care were monitored throughout the procedure. The physical status of the patient was re-assessed after the procedure. The Colonoscope was introduced through the anus and advanced to the terminal ileum, with identification of the appendiceal orifice and IC valve. The colonoscopy was performed without difficulty. The patient tolerated the procedure well. The quality of the bowel preparation was good. The terminal ileum, ileocecal valve, appendiceal orifice, and rectum were photographed. Scope insertion time was 3 minutes. Scope withdrawal time was 9 minutes. The total duration of the procedure was 12 minutes. Findings: The perianal and digital rectal examinations were normal. The terminal ileum appeared normal. Three sessile polyps were found in the recto-sigmoid colon. The polyps were 3 to 4 mm in size. These polyps were removed with a cold biopsy forceps. Resection and retrieval were complete. Verification of patient identification for the specimen was done by the physician and nurse using the patient's name, date and medical record number. Estimated blood loss was minimal. Non-bleeding external and internal hemorrhoids were found during retroflexion. The hemorrhoids were medium-sized. Impression: - The examined portion of the ileum was normal. - Three 3 to 4 mm polyps at the recto-sigmoid colon, removed with a cold biopsy forceps. Resected and retrieved. - Non-bleeding external and internal hemorrhoids. Recommendation: - Patient has a contact number available for emergencies. The signs and symptoms of potential delayed complications were discussed with the patient. Return to normal activities tomorrow. Written discharge instructions were provided to the patient. - High fiber diet. - Continue present medications. - Await pathology results. - Repeat colonoscopy in 5-10 years for surveillance based on pathology results. - Telephone GI clinic for pathology results in 2 weeks. - Return to primary care physician. Tree Jenkins MD Tree Jenkins MD 05/24/2020 11:12:57 AM Electronically signed by Tree Jenkins MD Number of Addenda: 0 Note Initiated On: 05/24/2020 9:23 AM Estimated Blood Loss: Estimated blood loss was minimal.
== END 2020-05-24 10:37 | disposition home or self-care (01) ==
LOC: M OPP 08:12
PROVIDERS: ATTEND Internal Medicine Gastroenterology
DX: Z12.11 Encounter for screening for malignant neoplasm of colon (principal); K63.5 Polyp of colon; K64.8 Other hemorrhoids; K29.70 Gastritis, unspecified, without bleeding; R13.10 Dysphagia, unspecified; R10.13 Epigastric pain; E03.9 Hypothyroidism, unspecified; I10 Essential (primary) hypertension; Z79.899 Other long term (current) drug therapy; Z88.0 Allergy status to penicillin
CPT/HCPCS: 43239; 45380; 88305; J3010

== ENCOUNTER → 2020-06-17 | Outpatient (CLI) | payer OTHER ==
[~2020-06-17] MED LIST changes: -NS 1,000 ML IV ONE
--- NOTE | 2020-06-26 13:14 | REPPI ---
LEFT RIB SERIES HISTORY: Left-sided rib pain. TECHNIQUE: Four views of the left ribs are performed. FINDINGS: No fracture or bone lesion is seen. The left lung appears clear with no abnormal opacities. IMPRESSION: Negative left rib series. MTDD
== END ==
LOC: M PLAIMG 14:38
PROVIDERS: ATTEND Nurse Practitioner Family
DX: R10.9 Unspecified abdominal pain (principal)

== ENCOUNTER 2020-10-11 09:38 | Emergency (ER) | payer OTHER ==
[~2020-10-11] VITALS: Ht 160 cm; Wt 106.0 kg
--- OUTSIDE RECORDS SUMMARY | 2020-10-11 09:56 | CCD ---
Author Author [facility] Organization [facility] Address Unknown Phone Unavailable Care Team Providers Care Manager Title Name Role Phone Cathie Zapata Unavailable PROBLEMS Type Condition ICD9-CM Code JXL10-JP Code Onset Dates Condition S tatus SNOMED Code Notes Problem Anxiety F41.9 Active 83958270 Problem Hypothyroidism, unspecified type E03.9 Active 01697330 Problem Allergic rhinitis, unspecified seasonality, unspecifie d trigger J30.9 Active 95226215 Problem Constipation, unspecified constipation type K59.00 Active 35533007 Problem Essential hypertension I10 Active 62375318 Problem Chronic rhinitis J31.0 Active 19770538 Problem Severe episode of recurrent major depressive disorder, without psychotic features F33.2 Active 49528055 Problem Psychophysiological insomnia F51.04 Active 241 06439 Problem Nicotine dependence, cigarettes, in remission F17. 211 Active 133283267 Problem Right hand paresthesia R20.2 Active 019509054 ALLERGIES Allergen (clinical drug ingredient) Drug/Non Drug Allergy do cumented on EMR Reaction Allergy Type Onset Date Status Penicillin (For Allergies Use Only) Anaphylaxis Drug Aller gy Active amoxicillin Amoxicillin([facility] Code:[address]-53) Anaphylaxis Drug Isael rgy Active ENCOUNTERS from 1988 to 2020-08-24 Encounter Location Date Provider Diagnosis [address] [address] Aug, Cathie Zapata Essential hypertension I10 ; Psychophysi ological insomnia F51.04 ; Hypothyroidism, unspecified type E03.9 and Severe episode of recurrent major depressive disorder, without psychotic features F33.2 IMMUNIZATIONS Vaccine Route Administration Date Status Influenza (6mo & up) Fluzone IM Intramuscular Sep 30, 2018 Ad ministered Influenza (6mo & up) Fluzone IM Intramuscular Jul 10, 2010 Ad ministered SOCIAL HISTORY Tobacco Use: Social History Observation Description Date Details (start date - stop date) Former Smoker Sex Assigned At : Social History Observation Description Sex Assigned At Unknown Education: Question Answer Notes Level of Education: High School Audit Question Answer Notes Total Score: 4 Interpretation: Alcohol Education Language: Question Answer Notes Languages spoken: Portuguese Jew: Question Answer Notes Jew 13 [employer] Domestic Violence: Question Answer Notes Status: Single Sexual Hx: Question Answer Notes Had sex in the last 12 months (vaginal, oral, or anal)? Yes Have you ever had an STD? Yes with Men only Use protection? Yes Chlamydia? Yes How often? Some of the time Drug and Alcohol Question Answer Notes Total Score: 1 Interpretation: Low level Alcohol Screening: Question Answer Notes Did you have a drink containing alcohol in the past year? No Points 0 Interpretation Negative Tobacco Use: Question Answer Notes Are you a: former smoker How long has it been since you last smoked? 1-3 months REASON FOR REFERRAL No Information VITAL SIGNS No information MEDICATIONS Medication SIG (Take, Route, Frequency, Duration) Notes Start Da te End Date Status Multi Vitamin - 1 tablet Orally Once a day Active Acyclovir 400 MG 1 tablet Orally 2 times a day Not-Taking Hydrochlorothiazide 25 MG 1 tablet in the morning Orally Onc e a day for 90 days Active ProAir HFA 108 (90 Base) MCG/ACT 1 puff as needed Inhalation every 4 hrs Active Levothyroxine Sodium 150 MCG 1 tablet on an empty stom ach in the morning Orally Once a day for 90 days Active Naproxen 500 MG 1 tablet with food or milk as needed Orally ever y 12 hrs Feb, Active Norvasc 5mg 1 tab orally Daily for 90 days Active TraZODone HCl 150 MG 1 tablet at bedtime Orally Once a day for 90 day s Active Effexor XR 150 MG 1 capsule with food Orally Once a day for 90 days Active PROCEDURES No Information RESULTS No Results REASON FOR VISIT refill MEDICAL (GENERAL) HISTORY Type Description Date Medical History HTN Medical History Anxiety Medical History Hypothyroidism Medical History Depression Medical History Allergic Rhinitis - Dr. Alba Medical History Hyperlipidemia Medical History ASCVD risk 0.8% on 06/2018 Medical History Endometriosis - Dr. Carrero Surgical History C section x3 - 2004, 2008, 2010 Hospitalization History seizure 2015 Goals Section No Information Health Concerns No Information MEDICAL EQUIPMENT No Information MENTAL STATUS No Information FUNCTIONAL STATUS No Information ASSESSMENTS Encounter Date Diagnosis Assessment Notes Treatment Notes Treatm ent Clinical Notes Aug, Essential hypertension (ICD-10 - I10) Aug, Psychophysiological insomnia (ICD-10 - F51.04) Aug, Hypothyroidism, unspecified type (ICD-10 - E03.9 ) Aug, Severe episode of recurrent major depressive disorder, without psychotic features (ICD-10 - F33.2) PLAN OF TREATMENT Medication Medication Name Sig Start Date Stop Date Naproxen 500 MG 1 tablet with food or milk as needed Ora lly every 12 hrs Feb, Norvasc 5mg 1 tab orally Daily for 90 days ProAir HFA 108 (90 Base) MCG/ACT 1 puff as needed Inhalation dwaine ry 4 hrs TraZODone HCl 150 MG 1 tablet at bedtime Orally Once a day for 9 0 days Effexor XR 150 MG 1 capsule with food Orally Once a day for 90 d ays Hydrochlorothiazide 25 MG 1 tablet in the morning Orally Onc e a day for 90 days Levothyroxine Sodium 150 MCG 1 tablet on an empty stom ach in the morning Orally Once a day for 90 days Next Appt Details Provider Name:Cathie Zapata, 2020-11-27 01:00:00 PM, [facility] [place], [address], Insurance Providers Payer Name Payer Address Payer Phone Insured Name Patient Relati onship to Insured Coverage Start Date Coverage End Date FORMERLY [facility] [employer] [facility] [address] [facility] [id number] [phone] JOSE ALEJANDRO SMITH self
--- OUTSIDE RECORDS SUMMARY | 2020-10-11 09:56 | CCD ---
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 Name Role Phone Jorge Poe MD Unavailable Unavailable Jorge Poe MD Unavailable Unavailable Jorge Poe MD Unavailable Unavailable Jorge Poe MD Unavailable Unavailable Jorge Poe MD Unavailable Unavailable Jorge Poe MD Unavailable Unavailable Jorge Poe MD Unavailable Unavailable Jorge Poe MD Unavailable Unavailable Jorge Poe MD Unavailable Unavailable Jorge Poe MD Unavailable Unavailable Jorge Poe MD Unavailable Unavailable Jorge Poe MD Unavailable Unavailable Jorge Poe MD Unavailable Unavailable Jorge Poe MD Unavailable Unavailable Jorge Poe MD Unavailable Unavailable Jorge Poe MD Unavailable Unavailable Jorge Poe MD Unavailable Unavailable Jorge Poe MD Unavailable Unavailable Jorge Poe MD Unavailable Unavailable Jorge Poe MD Unavailable Unavailable Jorge Poe MD Unavailable Unavailable Jorge Poe MD Unavailable Unavailable Jorge Poe MD Unavailable Unavailable Jorge Poe MD Unavailable Unavailable Jorge Poe MD Unavailable Unavailable Jorge Poe MD Unavailable Unavailable Jorge Poe MD Unavailable Unavailable Jorge Poe MD Unavailable Unavailable Jorge Poe MD Unavailable Unavailable Jorge Poe MD Unavailable Unavailable Jorge Poe MD Unavailable Unavailable Jorge Poe MD Unavailable Unavailable Jorge Poe MD Unavailable Unavailable Jorge Poe MD Unavailable Unavailable Jorge Poe MD Unavailable Unavailable Jorge Poe MD Unavailable Unavailable Jorge Poe MD Unavailable Unavailable Jorge Poe MD Unavailable Unavailable Jorge Poe MD Unavailable Unavailable Jorge Poe MD Unavailable Unavailable Jorge Poe MD Unavailable Unavailable Jorge Poe MD Unavailable Unavailable Jorge Poe MD Unavailable Unavailable Jorge Poe MD Unavailable Unavailable Jorge Poe MD Unavailable Unavailable Jorge Poe MD Unavailable Unavailable Jorge Poe MD Unavailable Unavailable Jorge Poe MD Unavailable Unavailable Jorge Poe MD Unavailable Unavailable Jorge Poe MD Unavailable Unavailable Jorge Poe MD Unavailable Unavailable Jorge Poe MD Unavailable Unavailable Jorge Poe MD Unavailable Unavailable Jorge Poe MD Unavailable Unavailable Jorge Poe MD Unavailable Unavailable Jorge Poe MD Unavailable Unavailable Jorge Poe MD Unavailable Unavailable Jorge Poe MD Unavailable Unavailable Jorge Poe MD Unavailable Unavailable Jorge Poe MD Unavailable Unavailable Jorge Poe MD Unavailable Unavailable Jorge Poe MD Unavailable Unavailable Jorge Poe MD Unavailable Unavailable Jorge Poe MD Unavailable Unavailable Jorge Poe MD Unavailable Unavailable Jorge Poe MD Unavailable Unavailable Jorge Poe MD Unavailable Unavailable Jorge Poe MD Unavailable Unavailable Jorge Poe MD Unavailable Unavailable Jorge Poe MD Unavailable Unavailable Jorge Poe MD Unavailable Unavailable Jorge Poe MD Unavailable Unavailable Jorge Poe MD Unavailable Unavailable Jorge Poe MD Unavailable Unavailable Jorge Poe MD Unavailable Unavailable Jorge Poe MD Unavailable Unavailable Jorge Poe MD Unavailable Unavailable Jorge Poe MD Unavailable Unavailable Jorge Poe MD Unavailable Unavailable Jorge Poe MD Unavailable Unavailable Jorge Poe MD Unavailable Unavailable Jorge Poe MD Unavailable Unavailable Jorge Poe MD Unavailable Unavailable Jorge Poe MD Unavailable Unavailable Jorge Poe MD Unavailable Unavailable Jorge Poe MD Unavailable Unavailable Jorge Poe MD Unavailable Unavailable Jorge Poe MD Unavailable Unavailable Jorge Poe MD Unavailable Unavailable Re-disclosure Warning The records that you are about to access may contain information from federally-assisted alcohol or drug abuse programs. If such information is present, then the following federally mandated warning applies: This information has been disclosed to you from records protected by federal confidentiality rules (42 CFR part 2). The federal rules prohibit you from making any further disclosure of this information unless further disclosure is expressly permitted by the written consent of the person to whom it pertains or as otherwise permitted by 42 CFR part 2. A general authorization for the release of medical or other information is NOT sufficient for this purpose. The Federal rules restrict any use of the information to criminally investigate or prosecute any alcohol or drug abuse patient.The records that you are about to access may contain highly sensitive health information, the redisclosure of which is protected by Article 27-F of the [facility] Public Health law. If you continue you may have access to information: Regarding HIV / AIDS; Provided by facilities licensed or operated by the [facility] Office of Mental Health; or Provided by the [facility] Office for People With Developmental Disabilities. If such information is present, then the following [facility] mandated warning applies: This information has been disclosed to you from confidential records which are protected by state law. State law prohibits you from making any further disclosure of this information without the specific written consent of the person to whom it pertains, or as otherwise permitted by law. Any unauthorized further disclosure in violation of state law may result in a fine or fdc sentence or both. A general authorization for the release of medical or other information is NOT sufficient authorization for further disc losure. Allergies and Adverse Reactions Type Description Substance Reaction Status Data Source(s ) Drug allergy Amoxicillin Amoxicillin Anaphylaxis Active eCW1 ([facility]) Family History Family Member Name Family Member Gender Family Member Status Date o f Status Description Data Source(s) Unknown Unknown Problem [facility] Unknown Unknown Problem MEDENT ([facility], ) Encounters Encounter Providers Location Date Indications Data Source(s ) [place] [address] [facility] [address] 08/23/2020 12:00:00 AM EST [facility] [place] [address] [facility] [address] 07/24/2020 12:00:00 AM EST [facility] [place] [address] [facility] [address] 07/10/2020 12:00:00 AM EDT [facility] [place] [place] [address] [facility] [place] [address] 04/10/2020 12:00:00 AM EDT [facility]CW1 [facility] [address] [facility] [place] [address] 03/14/2020 12:00:00 AM EDT [facility] [place] [address] [facility] [address] 02/23/2020 12:00:00 AM EDT [facility] [address] [facility] [place] [address] 02/05/2020 12:00:00 AM EDT [facility]CW1 [facility] [address] [facility] [address] 01/18/2020 12:00:00 AM EDT [facility] [address] [facility] [place] [address] 01/15/2020 12:00:00 AM EDT eCW1 ([facility] [place] [address] [facility] [place] [address] 01/12/2020 12:00:00 AM EDT eCW1 ([facility] [place]) [facility] [address] [facility] [place] [address] 11/22/2019 12:00:00 AM EST eCW1 ([facility]) [facility] [address] [facility] [address] 11/13/2019 12:00:00 AM EST eCW1 ([facility]) [facility] [address] [facility] [address] 11/13/2019 12:00:00 AM EST eCW1 ([facility]) [facility] [address] [facility] [address] 09/21/2019 12:00:00 AM EST eCW1 ([facility]) Outpatient Attender: Tej ANN 08/15/2019 09:22:00 AM EST [facility] Medications Medication Brand Name Start Date Product Form Dose Route Admi nistrative Instructions Pharmacy Instructions Status Indications Reaction Description Data Source(s) 150 mg 08/24/2020 12:00:00 AM EST capsule,extended releas e 24hr 90 TAKE ONE CAPSULE BY MOUTH EVERY DAY WITH FOOD TAKE ONE CAPSULE BY MOUTH EVERY DAY WITH FOOD SOLD: 08/28/2020 [facility] 25 mg 08/24/2020 12:00:00 AM EST tablet 90 TAKE ONE TABLET BY MOUTH EVERY MORNING TAKE ONE TABLET BY MOUTH EVERY MORNING SOLD: 08/28/2020 [facility] 5 mg 08/24/2020 12:00:00 AM EST tablet 90 TAKE ONE TABLET BY MOUTH EVERY DAY TAKE ONE TABLET BY MOUTH EVERY DAY SOLD: 08/28/2020 [facility] 150 mg 08/24/2020 12:00:00 AM EST tablet 90 TAKE ONE TABLET BY MOUTH EVERY DAY AT BEDTIME TAKE ONE TABLET BY MOUTH EVERY DAY AT BEDTIME SOLD: 08/28/2020 [facility] 150 mcg 07/25/2020 12:00:00 AM EST tablet 90 TAKE 1 TABLET BY MOUTH ON AN EMPTY STOMACH IN THE MORNING TAKE 1 TABLET BY MOUTH ON AN EMPTY STOMA CH IN THE MORNING SOLD: 07/27/2020 [facility] 100 mg 07/05/2020 12:00:00 AM EDT capsule 60 TAKE 1 CAPSULE BY MOUTH TWICE A DAY BEFORE A MEAL (INCREASE TO 3 PER DAY IF PERSISTENT CONSTIPATION AND HOLD / DECREASE IF HAVING DIARRHEA) TAKE 1 CAPSULE BY MOUTH TWICE A DAY BEFO RE A MEAL (INCREASE TO 3 PER DAY IF PERSISTENT CONSTIPATION AND HOLD / DECREASE IF HAVING DIARRHEA) SOLD: 07/21/2020 [facility] 100 mg 07/05/2020 12:00:00 AM EDT capsule 60 TAKE 1 CAPSULE BY MOUTH TWICE A DAY BEFORE A MEAL (INCREASE TO 3 PER DAY IF PERSISTENT CONSTIPATION AND HOLD / DECREASE IF HAVING DIARRHEA) TAKE 1 CAPSULE BY MOUTH TWICE A DAY BEFO RE A MEAL (INCREASE TO 3 PER DAY IF PERSISTENT CONSTIPATION AND HOLD / DECREASE IF HAVING DIARRHEA) SOLD: 08/28/2020 [facility] Metronidazole 500 MG Oral Tablet METRONIDAZOLE 06/26/2020 12:0 0:00 AM EDT tablet 42 TAKE ONE TABLET BY M OUTH THREE TIMES A DAY AFTER MEALS FOR 14 DAYS (FOR H. PYLORI THERAPY) TAKE ONE TABLET BY MOUTH THREE TIMES A D AY AFTER MEALS FOR 14 DAYS (FOR H. PYLORI THERAPY) SOLD: 06/26/2020 [facility] 20 mg 06/26/2020 12:00:00 AM EDT capsule,delayed release (DR/EC) 28 TAKE ONE CAPSULE BY MOUTH TWICE A DAY FOR 14 DAYS (H. PYLORI THERAPY) TAKE ONE CAPSULE BY MOUTH TWICE A DAY FOR 14 DAYS (H. PYLORI THERAPY) SOLD: 06/26/2020 [facility] 500 mg 06/26/2020 12:00:00 AM EDT tablet 28 TAKE ONE TABLET BY MOUTH TWICE A DAY FOR 14 DAYS (FOR H. PYLORI THERAPY) TAKE ONE TABLET BY MOUTH TWICE A DAY FOR 14 DAYS (FOR H. PYLORI THERAPY) SOLD: 06/26/2020 [facility] 8.6 mg 06/26/2020 12:00:00 AM EDT tablet 60 TAKE TWO TABLETS BY MOUTH AT BEDTIME TAKE TWO TABLETS BY MOUTH AT BEDTIME SOLD: 06/26/2020 [facility] 5 mg 05/30/2020 12:00:00 AM EDT tablet 90 TAKE ONE TABLET BY MOUTH EVERY DAY TAKE ONE TABLET BY MOUTH EVERY DAY SOLD: 05/31/2020 [facility] Trazodone Hydrochloride 100 MG Oral Tablet TRAZODONE HCL 05/30/2020 12:00:00 AM EDT tablet 90 TAKE ONE TABLET BY MOUTH WINSOME RY EVENING TAKE ONE TABLET BY MOUTH EVERY EVENING SOLD: 05/31/2020 [facility] 5 mg 05/23/2020 12:00:00 AM EDT tablet,delayed release (DR/EC) 4 TAKE FOUR TABLETS TOGETHER PER BOWEL PREPARATION INSTRUCTIONS TAKE FOUR TABLETS TOGETHER PER BOWEL PREPARATION INSTRUCTIONS SOLD: 05/23/2020 [facility] 420 gram 05/10/2020 12:00:00 AM EDT recon soln 4000 DRINK THE LIQUID PER PRE-PROCEDURE INSTRUCTIONS DRINK THE LIQUID PER PRE-PROCEDURE INSTRUCTIONS SOLD: 05/23/2020 [facility] 50 mg 05/01/2020 12:00:00 AM EDT tablet 30 TAKE ONE TABLET BY MOUTH AT BEDTIME NEEDED TAKE ONE TABLET BY MOUTH AT BEDTIME NEEDED SOLD: [facility] 5 mg 05/01/2020 12:00:00 AM EDT tablet 15 TAKE ONE TABLET BY MOUTH EVERY DAY NEEDED , MAXIMUM DAILY DOSE = 1 TABLET TAKE ONE TABLET BY MOUTH EVERY DAY NEEDED , MAXIMUM DAILY DOSE = 1 TABLET SOLD: 05/02/2020 [facility] 5 mg 04/20/2020 12:00:00 AM EDT tablet 30 TAKE ONE TABLET BY MOUTH EVERY DAY TAKE ONE TABLET BY MOUTH EVERY DAY SOLD: 04/22/2020 [facility] 800 mg 04/18/2020 12:00:00 AM EDT tablet 20 TAKE 1 TABLET BY MOUTH EVERY 6 TO 8 HOURS NEEDED TAKE 1 TABLET BY MOUTH EVERY 6 TO 8 HOURS NEEDED SO LD: 04/19/2020 [facility] 300 mg 04/18/2020 12:00:00 AM EDT capsule 28 TAKE 1 CAPSULE BY MOUTH EVERY 6 HOURS TAKE 1 CAPSULE BY MOUTH EVERY 6 HOURS SOLD: 04/19/2020 [facility] Famotidine 20 MG Oral Tablet Famotidine 04/10/2020 12:00:00 AM EDT ORAL active MEDENT ([facility], ) Docusate Sodium 100 MG Oral Capsule [Colace] Colace 12:00:00 AM EDT active MEDENT ( [facility], ) 100 mg 04/10/2020 12:00:00 AM EDT capsule 90 TAKE ONE CAPSULE BY MOUTH TWICE A DAY BEFORE A MEAL, INCREASE TO THREE TIMES A DAY IF PERSISTENT CONSTIPATION AND HOLD/ DECREASE IF HAVING DIARRHEA TAKE ONE CAPSULE BY MOUTH TWICE A DAY BEFORE A MEAL, INCREASE TO THREE TIMES A DAY IF PERSISTENT CONSTIPATION AND HOLD/ DECREASE IF HAVING DIARRHEA SOLD: 06/10/2020 [facility] 100 mg 04/10/2020 12:00:00 AM EDT capsule 90 TAKE ONE CAPSULE BY MOUTH TWICE A DAY BEFORE A MEAL, INCREASE TO THREE TIMES A DAY IF PERSISTENT CONSTIPATION AND HOLD/ DECREASE IF HAVING DIARRHEA TAKE ONE CAPSULE BY MOUTH TWICE A DAY BEFORE A MEAL, INCREASE TO THREE TIMES A DAY IF PERSISTENT CONSTIPATION AND HOLD/ DECREASE IF HAVING DIARRHEA SOLD: 04/19/2020 [facility] 150 mcg 04/10/2020 12:00:00 AM EDT tablet 90 TAKE ONE TABLET BY MOUTH EVERY MORNING ON AN EMPTY STOMACH TAKE ONE TABLET BY MOUTH EVERY MORNING O N AN EMPTY STOMACH SOLD: 04/19/2020 [facility] 8.6 mg 04/10/2020 12:00:00 AM EDT tablet 60 TAKE TWO TABLETS BY MOUTH EVERY DAY AT BEDTIME TAKE TWO TABLETS BY MOUTH EVERY DAY AT BEDTIME SOLD: 020 [facility] sennosides, LONGTERM 8.6 MG Oral Tablet Senna 04/10/2020 12:00:00 AM EDT ORAL active MEDENT ([facility], ) 20 mg 04/10/2020 12:00:00 AM EDT tablet 60 TAKE ONE TABLET BY MOUTH TWICE A DAY (CROP ADJUSTER ON EMPTY STOMACH & AT BEDTIME) TAKE FOR 6 WEEKS AND THEN TAPER OFF TAKE ONE TABLET BY MOUTH TWICE A DAY (EA RLY MORNING ON EMPTY STOMACH & AT BEDTIME) TAKE FOR 6 WEEKS AND THEN TAPER OFF SOLD: 06/10/2020 [facility] 8.6 mg 04/10/2020 12:00:00 AM EDT tablet 60 TAKE TWO TABLETS BY MOUTH EVERY DAY AT BEDTIME TAKE TWO TABLETS BY MOUTH EVERY DAY AT BEDTIME SOLD: 020 [facility] 20 mg 04/10/2020 12:00:00 AM EDT tablet 60 TAKE ONE TABLET BY MOUTH TWICE A DAY (CROP ADJUSTER ON EMPTY STOMACH & AT BEDTIME) TAKE FOR 6 WEEKS AND THEN TAPER OFF TAKE ONE TABLET BY MOUTH TWICE A DAY (EA RLY MORNING ON EMPTY STOMACH & AT BEDTIME) TAKE FOR 6 WEEKS AND THEN TAPER OFF SOLD: 04/19/2020 [facility] 150 mg 02/24/2020 12:00:00 AM EDT capsule,extended releas e 24hr 90 TAKE ONE CAPSULE BY MOUTH EVERY DAY WITH FOOD TAKE ONE CAPSULE BY MOUTH EVERY DAY WITH FOOD SOLD: 02/29/2020 [facility] 150 mg 02/24/2020 12:00:00 AM EDT tablet 90 TAKE ONE TABLET BY MOUTH EVERY DAY AT BEDTIME TAKE ONE TABLET BY MOUTH EVERY DAY AT BEDTIME SOLD: 02/29/2020 [facility] 150 mg 02/24/2020 12:00:00 AM EDT capsule,extended releas e 24hr 90 TAKE ONE CAPSULE BY MOUTH EVERY DAY WITH FOOD TAKE ONE CAPSULE BY MOUTH EVERY DAY WITH FOOD SOLD: 05/30/2020 [facility] 25 mg 02/24/2020 12:00:00 AM EDT tablet 90 TAKE ONE TABLET BY MOUTH EVERY MORNING TAKE ONE TABLET BY MOUTH EVERY MORNING SOLD: 02/29/2020 [facility] 25 mg 02/24/2020 12:00:00 AM EDT tablet 90 TAKE ONE TABLET BY MOUTH EVERY MORNING TAKE ONE TABLET BY MOUTH EVERY MORNING SOLD: 05/30/2020 [facility] 150 mg 02/24/2020 12:00:00 AM EDT tablet 90 TAKE ONE TABLET BY MOUTH EVERY DAY AT BEDTIME TAKE ONE TABLET BY MOUTH EVERY DAY AT BEDTIME SOLD: 05/30/2020 [facility] 25 mg 01/23/2020 12:00:00 AM EDT tablet 30 TAKE ONE TABLET BY MOUTH EVERY MORNING TAKE ONE TABLET BY MOUTH EVERY MORNING SOLD: 01/24/2020 [facility] 150 mg 01/23/2020 12:00:00 AM EDT capsule,extended releas e 24hr 30 TAKE ONE CAPSULE BY MOUTH EVERY DAY WITH FOOD TAKE ONE CAPSULE BY MOUTH EVERY DAY WITH FOOD SOLD: 01/24/2020 [facility] 5 mg 01/23/2020 12:00:00 AM EDT tablet 90 TAKE ONE TABLET BY MOUTH EVERY DAY TAKE ONE TABLET BY MOUTH EVERY DAY SOLD: 01/24/2020 [facility] 150 mcg 01/23/2020 12:00:00 AM EDT tablet 90 TAKE ONE TABLET BY MOUTH EVERY MORNING ON AN EMPTY STOMACH TAKE ONE TABLET BY MOUTH EVERY MORNING O N AN EMPTY STOMACH SOLD: 01/24/2020 [facility] 5 mg 11/23/2019 12:00:00 AM EST tablet 30 TAKE ONE TABLET BY MOUTH EVERY DAY TAKE ONE TABLET BY MOUTH EVERY DAY SOLD: 12/23/2019 [facility] 150 mcg 11/23/2019 12:00:00 AM EST tablet 30 TAKE ONE TABLET BY MOUTH EVERY MORNING ON AN EMPTY STOMACH TAKE ONE TABLET BY MOUTH EVERY MORNING O N AN EMPTY STOMACH SOLD: 12/23/2019 [facility] 25 mg 11/23/2019 12:00:00 AM EST tablet 30 TAKE ONE TABLET BY MOUTH EVERY MORNING TAKE ONE TABLET BY MOUTH EVERY MORNING SOLD: 12/23/2019 [facility] 150 mcg 11/23/2019 12:00:00 AM EST tablet 30 TAKE ONE TABLET BY MOUTH EVERY MORNING ON AN EMPTY STOMACH TAKE ONE TABLET BY MOUTH EVERY MORNING O N AN EMPTY STOMACH SOLD: 11/24/2019 [facility] 25 mg 11/23/2019 12:00:00 AM EST tablet 30 TAKE ONE TABLET BY MOUTH EVERY MORNING TAKE ONE TABLET BY MOUTH EVERY MORNING SOLD: 11/24/2019 [facility] 150 mg 11/23/2019 12:00:00 AM EST tablet 30 TAKE ONE TABLET BY MOUTH EVERY DAY AT BEDTIME TAKE ONE TABLET BY MOUTH EVERY DAY AT BEDTIME SOLD: 11/24/2019 [facility] 5 mg 11/23/2019 12:00:00 AM EST tablet 30 TAKE ONE TABLET BY MOUTH EVERY DAY TAKE ONE TABLET BY MOUTH EVERY DAY SOLD: 11/24/2019 [facility] 5 mg 09/22/2019 12:00:00 AM EST tablet 30 TAKE ONE TABLET BY MOUTH EVERY DAY TAKE ONE TABLET BY MOUTH EVERY DAY SOLD: 09/22/2019 [facility] 25 mg 09/22/2019 12:00:00 AM EST tablet 30 TAKE ONE TABLET BY MOUTH EVERY MORNING TAKE ONE TABLET BY MOUTH EVERY MORNING SOLD: 09/22/2019 [facility] 150 mcg 09/22/2019 12:00:00 AM EST tablet 30 TAKE ONE TABLET BY MOUTH EVERY MORNING ON AN EMPTY STOMACH TAKE ONE TABLET BY MOUTH EVERY MORNING O N AN EMPTY STOMACH SOLD: 09/22/2019 [facility] 150 mcg 09/22/2019 12:00:00 AM EST tablet 30 TAKE ONE TABLET BY MOUTH EVERY MORNING ON AN EMPTY STOMACH TAKE ONE TABLET BY MOUTH EVERY MORNING O N AN EMPTY STOMACH SOLD: 10/24/2019 [facility] 25 mg 09/22/2019 12:00:00 AM EST tablet 30 TAKE ONE TABLET BY MOUTH EVERY MORNING TAKE ONE TABLET BY MOUTH EVERY MORNING SOLD: 10/24/2019 [facility] 5 mg 09/22/2019 12:00:00 AM EST tablet 30 TAKE ONE TABLET BY MOUTH EVERY DAY TAKE ONE TABLET BY MOUTH EVERY DAY SOLD: 10/24/2019 [facility] 150 mg 09/15/2019 12:00:00 AM EST capsule,extended releas e 24hr 30 TAKE ONE CAPSULE BY MOUTH EVERY DAY WITH FOOD TAKE ONE CAPSULE BY MOUTH EVERY DAY WITH FOOD SOLD: 11/24/2019 [facility] 150 mg 09/15/2019 12:00:00 AM EST capsule,extended releas e 24hr 30 TAKE ONE CAPSULE BY MOUTH EVERY DAY WITH FOOD TAKE ONE CAPSULE BY MOUTH EVERY DAY WITH FOOD SOLD: 09/22/2019 [facility] 150 mg 09/15/2019 12:00:00 AM EST capsule,extended releas e 24hr 30 TAKE ONE CAPSULE BY MOUTH EVERY DAY WITH FOOD TAKE ONE CAPSULE BY MOUTH EVERY DAY WITH FOOD SOLD: 10/24/2019 [facility] 150 mg 09/15/2019 12:00:00 AM EST capsule,extended releas e 24hr 30 TAKE ONE CAPSULE BY MOUTH EVERY DAY WITH FOOD TAKE ONE CAPSULE BY MOUTH EVERY DAY WITH FOOD SOLD: 12/23/2019 [facility] 150 mcg 07/10/2019 12:00:00 AM EDT tablet 30 TAKE ONE TABLET BY MOUTH ON AN EMPTY STOMACH IN THE MORNING TAKE ONE TABLET BY MOUTH ON AN EMPTY STO MACH IN THE MORNING SOLD: 08/19/2019 [facility] 150 mg 06/17/2019 12:00:00 AM EDT capsule,extended releas e 24hr 30 TAKE ONE CAPSULE BY MOUTH EVERY DAY WITH FOOD TAKE ONE CAPSULE BY MOUTH EVERY DAY WITH FOOD SOLD: 08/19/2019 [facility] 25 mg 03/09/2019 12:00:00 AM EDT tablet 30 TAKE ONE TABLET BY MOUTH EVERY MORNING TAKE ONE TABLET BY MOUTH EVERY MORNING SOLD: 08/19/2019 [facility] 150 mg 03/09/2019 12:00:00 AM EDT tablet 30 TAKE ONE TABLET BY MOUTH AT BEDTIME TAKE ONE TABLET BY MOUTH AT BEDTIME SOLD: 10/24/2019 [facility] 150 mg 03/09/2019 12:00:00 AM EDT tablet 30 TAKE ONE TABLET BY MOUTH AT BEDTIME TAKE ONE TABLET BY MOUTH AT BEDTIME SOLD: 09/05/2019 [facility] 5 mg 03/09/2019 12:00:00 AM EDT tablet 30 TAKE ONE TABLET BY MOUTH EVERY DAY TAKE ONE TABLET BY MOUTH EVERY DAY SOLD: 08/19/2019 [facility] 0.35 mg 02/23/2019 12:00:00 AM EDT tablet 84 TAKE ONE TABLET BY MOUTH DAILY TAKE ONE TABLET BY MOUTH DAILY SOLD: 08/28/2019 [facility] Insurance Providers Payer name Policy type / Coverage type Policy ID Covered constitution party ID Covered constitution party's relationship to shultz Policy Shultz Plan Information [facility] [id number] [place] [id number] [facility] [id number] SP [id number] Managed Care [facility] Community Plan P [id number] S [id number] Medicaid S [id number] S [id number] ANSI-Commercial [id number] ANSI-Medicaid [id number] ANSI-Medicaid [id number] ANSI-Commercial [id number] ANSI-Medicaid [id number] ANSI-Medicaid [id number] Managed Care - Community Plan [facility] P [id number] S [id number] [facility] (O) [id number] Self [id number] ANSI-Medicaid [id number] ANSI-Commercial [id number] ANSI-Medicaid [id number] ANSI-Medicaid [id number] ANSI-Commercial [id number] ANSI-Medicaid [id number] Medicaid [id number] Medicaid [id number] ANSI-Medicaid [id number] ANSI-Medicaid [id number] ANSI-Commercial [id number] ANSI-Commercial [id number] ANSI-Medicaid [id number] ANSI-Medicaid [id number] ANSI-Medicaid [id number] ANSI-Commercial [id number] ANSI-Medicaid [id number] [facility] [id number] ANSI-Medicaid [id number] ANSI-Medicaid [id number] ANSI-Medicaid [id number] [facility] [id number] ANSI-Medicaid [id number] ANSI-Medicaid [id number] [facility] [id number] ANSI-Medicaid [id number] ANSI-Medicaid [id number] ANSI-Commercial [id number] ANSI-Medicaid [id number] ANSI-Medicaid [id number] ANSI-Medicaid [id number] ANSI-Commercial [id number] ANSI-Medicaid [id number] ANSI-Commercial [id number] ANSI-Medicaid [id number] [facility] Health Maintenance Organization (HMO) [id number] Self [id number] [facility] Commercial [id number] Self [id number] [facility] Health Maintenance Organization (HMO) [id number] Self [id number] ANSI-Medicaid [id number] ANSI-Commercial [id number] ANSI-Medicaid [id number] [facility] NO FAULT [id number] 2 [id number] [facility] [id number] ANSI-Medicaid [id number] ANSI-Medicaid [id number] ANSI-Commercial [id number] ANSI-Medicaid [id number] ANSI-Medicaid [id number] ANSI-Commercial 

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
[2020-10-11 10:12] LABS: APPEARANCE, URINE CLEAR (CLEAR); BACTERIA, URINE AUTO NEGATIVE (NEGATIVE); BASO # 0.1 10^3/uL (0.0-0.2); BASO % 0.7 % (0.0-1.0); BILIRUBIN, URINE AUTO NEGATIVE (NEGATIVE); BLOOD, URINE BLOOD NEGATIVE (NEGATIVE); COLOR, URINE STRAW (YELLOW); EOS # 0.3 10^3/uL (0.0-0.5); EOS % 2.7 % (0.0-3.0); GLUCOSE, URINE (UA) AUTO NEGATIVE (NEGATIVE); HEMATOCRIT 42.2 % (36.0-47.0); KETONE, URINE AUTO NEGATIVE (NEGATIVE); LEUKOCYTE ESTERASE, URINE AUTO NEGATIVE (NEGATIVE); LYMPH # 2.4 10^3/uL (1.5-5.0); LYMPH % 19.9 % (24.0-44.0); MEAN CORPUSCULAR HGB CONC 33.2 g/dl (32.0-36.5); MEAN CORPUSCULAR VOLUME 81.5 fl (80.0-96.0); MONO # 0.9 10^3/uL (0.0-0.8); MONO % 7.7 % (0.0-5.0); NEUTROPHILS # 8.4 10^3/uL (1.5-8.5); NEUTROPHILS % 68.5 % (36.0-66.0); NITRITE, URINE AUTO NEGATIVE (NEGATIVE); PLATELET COUNT, AUTOMATED 251 10^3/uL (150-450); PROTEIN, URINE AUTO NEGATIVE (NEGATIVE); RBC, URINE AUTO 1 /HPF (0-3); RED BLOOD COUNT 5.18 10^6/uL (4.00-5.40); SQUAMOUS EPITHELIAL CELL UR AU 0 /HPF (0-6); UROBILINOGEN, URINE AUTO 0.2 mg/dL (0.0-2.0); WBC, URINE AUTO 0 /HPF (0-3); WHITE BLOOD COUNT 12.2 10^3/uL (4.0-10.0)
--- OUTSIDE RECORDS SUMMARY | 2020-10-11 10:34 | CCD ---
Author Author [facility] Organization [facility] Address Unknown Phone Unavailable Care Team Providers Care Plan Manager Name Role Phone Jorge Poe MD Unavailable [...] is protected by Article 27-F of the [facility] Public Health law. If you continue you may have access to information: Regarding HIV / AIDS; Provided by facilities licensed or operated by the [facility] Office of Mental Health; or Provided by the [facility] Office for People With Developmental Disabilities. If such information is present, then the following [facility] mandated warning applies: This information has been [...] law may result in a fine or alf sentence or both. A general authorization for the release of medical or other information is NOT sufficient authorization for further disc losure. Allergies and Adverse Reactions Type Description Substance Reaction Status Data Source(s ) Drug allergy Amoxicillin Amoxicillin Anaphylaxis Active eCW1 ([facility]) Family History Family Member Name Family Member Gender Family Member Status Date o f Status Description Data Source(s) Unknown Unknown Problem MEDENT ([facility]) Unknown Unknown Problem MEDENT ([facility]) Encounters Encounter Providers Location Date Indications Data Source(s ) Unknown [address] [facility] [address] 08/23/2020 12:00:00 AM EST eCW1 ([facility]) [place] [address] [facility] [place] [address] 07/24/2020 12:00:00 AM EST eCW1 ([facility]) Unknown [address] [facility] [address] 07/10/2020 12:00:00 AM EDT eCW1 ([facility]) Unknown [address] [facility] [address] 04/10/2020 12:00:00 AM EDT eCW1 ([facility]) [facility] [address] [facility] [place] [address] 03/14/2020 12:00:00 AM EDT eCW1 ([facility]) Unknown [address] [facility] [address] 02/23/2020 12:00:00 AM EDT eCW1 ([facility]) [facility] [address] [facility] [place] [address] 02/05/2020 12:00:00 AM EDT eCW1 ([facility]) [facility] [address] [facility] [address] 01/18/2020 12:00:00 AM EDT eCW1 ([facility]) [facility] [address] [facility] [place] [address] 01/15/2020 12:00:00 AM EDT eCW1 ([facility]) [facility] [address] [facility] [place] [address] 01/12/2020 12:00:00 AM EDT eCW1 ([facility]) [facility] [address] [facility] [address] 11/22/2019 12:00:00 AM EST eCW1 ([facility]) [facility] [address] [facility] [place] [address] 11/13/2019 12:00:00 AM EST eCW1 ([facility]) [facility] [address] [facility] [place] [address] 11/13/2019 12:00:00 AM EST eCW1 ([facility]) [facility] [address] [facility] [place] [address] 09/21/2019 12:00:00 AM EST eCW1 ([facility]) Outpatient Attender: Tej Poe MD 08/15/2019 09:22:00 AM EST [facility] Medications Medication Brand Name Start Date [...] [facility]) SOLD: 06/26/2020 [facility] 8.6 mg 06/26/2020 12:00:00 AM EDT [...] 04/10/2020 12:00:00 AM EDT ORAL active MEDENT ([facility], ) Docusate Sodium 100 MG Oral Capsule [Colace] Colace 12:00:00 AM EDT active MEDENT ( [facility], ) 100 mg 04/10/2020 12:00:00 AM [...] AT BEDTIME SOLD: 020 [facility] sennosides, [facility] 8.6 MG Oral Tablet Senna 04/10/2020 12:00:00 AM EDT ORAL active MEDENT ([facility], ) 20 mg 04/10/2020 12:00:00 AM EDT tablet 60 TAKE ONE TABLET BY MOUTH TWICE A DAY (DIRECTOR OF SAFETY ON EMPTY STOMACH & AT BEDTIME) TAKE [...] ONE TABLET BY MOUTH TWICE A DAY (DIRECTOR OF SAFETY ON EMPTY STOMACH & AT BEDTIME) TAKE [...] TABLET BY MOUTH EVERY MORNING SOLD: 02/29/2020 [facility] 25 mg 02/24/2020 12:00:00 AM EDT [...] TABLET BY MOUTH EVERY MORNING SOLD: 01/24/2020 [facility] 150 mg 01/23/2020 12:00:00 AM EDT [...] type / Coverage type Policy ID Covered democrat ID Covered democrat's relationship to billings Policy Billings Plan Information [facility] [id number] SP [id number] [facility] [id number] SP [id number] Managed Care - [facility] Community Plan P [id number] S [id number] Medicaid S [id number] S [id number] ANSI-Commercial [id number] ANSI-Medicaid [id number] ANSI-Medicaid [id number] ANSI-Commercial [id number] ANSI-Medicaid [id number] ANSI-Medicaid [id number] Managed Care - Community Plan [facility] P [id number] S [id number] [facility] Health Maintenance Organization (HMO) [id number] Self [id number] ANSI-Medicaid [id number] ANSI-Commercial [id number] ANSI-Medicaid [id number] ANSI-Medicaid [id number] ANSI-Commercial [id number] ANSI-Medicaid [id number] Medicaid [id number] Medicaid [id number] ANSI-Medicaid [id number] ANSI-Medicaid [id number] ANSI-Commercial [id number] ANSI-Commercial [id number] ANSI-Medicaid [id number] ANSI-Medicaid [id number] ANSI-Medicaid [id number] [facility] [id number] ANSI-Medicaid [id number] [facility] [id number] ANSI-Medicaid [id number] ANSI-Medicaid [id number] ANSI-Medicaid [id number] [facility] [id number] ANSI-Medicaid [id number] ANSI-Medicaid [id number] [facility] [id number] ANSI-Medicaid [id number] ANSI-Medicaid [id number] ANSI-Commercial [id number] ANSI-Medicaid [id number] ANSI-Medicaid [id number] ANSI-Medicaid [id number] ANSI-Commercial [id number] ANSI-Medicaid [id number] ANSI-Commercial [id number] ANSI-Medicaid [id number] [facility] Health Maintenance Organization (HMO) [id number] Self [id number] [facility] Commercial [id number] Self [id number] [facility] Health Maintenance Organization (HMO) [id number] Self [id number] ANSI-Medicaid [id number] ANSI-Commercial [id number] ANSI-Medicaid [id number] [facility] NO FAULT [id number] 2 [id number] [facility] [id number] ANSI-Medicaid [id number] ANSI-Medicaid [id number] ANSI-Commercial [id number] ANSI-Medicaid [id number] ANSI-Medicaid [id number] ANSI-Commercial [id number] ANSI-Medicaid [id number] ANSI-Commercial [id number] ANSI-Medicaid [id number] ANSI-Medicaid [id number] ANSI-Commercial [id number] ANSI-Medicaid [id number] NO FAULT O [id number] S [id number] [facility] O [id number] S [id number] OTHER NO FAULT [id number] [place] [id number] ANSI-Medicaid [id number] ANSI-Medicaid [id number] SELF PAY ONLY [id number] SP [id number] NO FAULT [id number] NO FAULT ANSI-Medicaid [id number] ANSI-Medicaid [id number] ANSI-Medicaid [id number] ANSI-Medicaid [id number] [facility] Maintenance Organization ([facility]) [id number] Self [id number] ANSI-Medicaid [id number] ANSI-Medicaid [id number] ANSI-Medicaid [id number] ANSI-Medicaid [id number] ANSI-Medicaid [id number] ANSI-Medicaid [id number] ANSI-Medicaid [id number] ANS-Medicaid [id number] ANS-Medicaid [id number] ANS-Medicaid [id number] [facility]-Medicaid [id number] [facility]-Medicaid [id number] MEDICAID [id number] SP [id number] Medicaid S [id number] S [id number] Self Pay P UNAVAILABLE S UNAVAILA BLE Managed Care - Community Plan [facility] P [id number] S [id number] MEDICAID M [id number] S [id number] MEDICAID [id number] SP [id number] [facility] [id number] SP [id number] P UNAVAILABLE UNAVAILA BLE MEDICAID [id number] SP [id number] SELF PAY UNAVAILABLE SP UNAVAILA BLE [id number] Problems, Conditions, and Diagnoses Code Display Name Description Problem Type Effective Dates Data Source(s) R20.2 222206320 Right hand paresthesia Problem 02/05/2020 12 :00:00 AM EDT eCW1 ([facility]) J31.0 77079007 Chronic rhinitis Problem 02/05/2020 12:00:00 AM EDT eCW1 ([facility]) K59.00 90099135 Constipation, unspecified constipation ty pe Problem 02/05/2020 12:00:00 AM EDT eCW1 ([facility]) R20.2 299356225 Right hand paresthesia Problem 02/05/2020 12 :00:00 AM EDT eCW1 ([facility]) J31.0 40378713 Chronic rhinitis Problem 02/05/2020 12:00:00 AM EDT eCW1 ([facility]) K59.00 67149163 Constipation, unspecified constipation ty pe Problem 02/05/2020 12:00:00 AM EDT eCW1 ([facility]) Results ID Date Data Source [id number] 05/19/2020 10:00:00 AM EDT [facility] Name Value Range Interpretation Code Description Data Li rce(s) Supporting Document(s) SARS coronavirus 2 RNA [facility] This lab was ordered by [facility] and reported by [facility]. ID Date Data Source Basic Metabolic Profile (BMP) 02/05/2020 12:00:00 AM EDT eCW 1 ([facility]) Name Value Range Interpretation Code Description Data Li rce(s) Supporting Document(s) 94 70-100 GLUCOSE, FASTING eCW1 ([facility]) 0.85 0.55-1.30 CREATININE FOR GFR eCW1 ([facility]) 8 7-18 BLOOD UREA NITROGEN eCW1 (Critical access hospital) > 60.0 >60 GLOMERULAR FILTRATION RATE eCW 1 ([facility]) 138 136-145 SODIUM LEVEL eCW1 ([facility]) 33 21-32 CARBON DIOXIDE LEVEL eCW1 ([facility]) 9.4 8.5-10.1 CALCIUM LEVEL eCW1 ([facility]) 3.7 3.5-5.1 POTASSIUM SERUM eCW1 ([facility]) 101 98-107 CHLORIDE LEVEL eCW1 ([facility]) ID Date Data Source FREE T4 & TSH PANEL 02/05/2020 12:00:00 AM EDT eCW1 ([facility]) Name Value Range Interpretation Code Description Data Li rce(s) Supporting Document(s) 1.34 0.76-1.46 FREE T4 eCW1 ([facility]) 0.904 0.358-3.740 THYROID STIMULATING HORM ONE eCW1 ([facility]) Procedure Social History Code Duration Value Status Description Data Source(s ) Smoking 02/05/2020 12:00:00 AM EDT Former Smoker completed Former Smoker eCW1 ([facility]) Smoking 02/05/2020 12:00:00 AM EDT Former Smoker completed Former Smoker eCW1 ([facility]) Smoking 02/05/2020 12:00:00 AM EDT Former Smoker completed Former Smoker eCW1 ([facility]) Smoking 02/05/2020 12:00:00 AM EDT Former Smoker completed Former Smoker eCW1 ([facility]) Smoking 02/05/2020 12:00:00 AM EDT Former Smoker completed Former Smoker eCW1 ([facility]) Vital Signs ID Date Data Source UNK Name Value Range Interpretation Code Description Data Source(s) Body weight 104.328 kg 104.328 kg [facility] ([facility]) Body mass index (BMI) [Ratio] 40.7 kg/m2 40.7 k g/m2 [facility] ([facility]) Body weight 230.00 [lb_av] 230.00 [lb_av] [facility] Body height 63 [in_i] 63 [in_i] [facility]) 5'3" Diastolic blood pressure 80 mm[Hg] 80 mm[Hg] [facility] ([facility]) Systolic blood pressure 124 mm[Hg] 124 mm[Hg] [facility] ([facility]) Diastolic blood pressure 82 mm[Hg] 82 mm[Hg] eCW1 ([facility]) Systolic blood pressure 140 mm[Hg] 140 mm[Hg] e CW1 ([facility]) Body temperature 98.2 [degF] 98.2 [degF] W1 ( [facility]) Respiratory rate 18 /min 18 /min eCW1 (Critical access hospital) Heart rate 98 /min 98 /min eCW1 ([facility]) Body mass index (BMI) [Ratio] 38.27 kg/m2 38.27 kg/m2 eCW1 ([facility]) Body height 64 [in_us] 64 [in_us] eCW1 ([facility]) Body weight Measured 223 [lb_av] 223 [lb_av] eC W1 ([facility])
--- NOTE | 2020-10-11 10:58 | REP ---
INDICATION: VAGINAL BLEEDING. COMPARISON: None. TECHNIQUE: Real-time sonographic evaluation of pelvis performed. FINDINGS: There is a single living intrauterine gestation. The estimated gestational age is 6 weeks 0 days based on a crown-rump length of 4 mm, EDC 06/06/2021. heart rate is 120 beats per minute. There is a subchorionic hemorrhage on the right measuring 12 x 8 x 17 mm. In the right ovary a cystic area is seen likely representing a corpus luteum, measuring 1.8 x 0.9 x 1.3 cm. IMPRESSION: Viable intrauterine gestation as above. Subchorionic hemorrhage to the right of the gestational sac 12 x 8 x 17 mm. <Electronically signed by Good Terry > 10/11/20 1059
[2020-10-11] MEDS ORDERED: RHOGAM 300 MCG (1500 IU) INJ (J2790) IM ONE (11:00)
[2020-10-11 12:02] VITALS: BP 128/98
== END 2020-10-11 12:08 | disposition home or self-care (01) ==
LOC: M ED 09:38
DX: O20.8 Other hemorrhage in early pregnancy (principal); Z3A.01 Less than 8 weeks gestation of pregnancy; O99.611 Diseases of the digestive system complicating pregnancy, first trimester; O99.281 Endocrine, nutritional and metabolic diseases complicating pregnancy, first trimester; O10.011 Pre-existing essential hypertension complicating pregnancy, first trimester; O99.351 Diseases of the nervous system complicating pregnancy, first trimester; O99.341 Other mental disorders complicating pregnancy, first trimester; O34.81 Maternal care for other abnormalities of pelvic organs, first trimester; Z79.899 Other long term (current) drug therapy; Z88.0 Allergy status to penicillin
CPT/HCPCS: 36415; 76801; 81001; 84702; 85025; 86850; 86900; 86901; 96372; 99284; J2790

== ENCOUNTER → 2020-10-11 | Outpatient (REF) | payer OTHER ==
[~2020-10-11] MED LIST changes: +HYDR-3490; -HYDR25TAB
[2020-10-11 12:32] LABS: ALBUMIN 3.8 GM/DL (3.2-5.2); ALT/SGPT 21 U/L (12-78); BILIRUBIN,TOTAL 0.4 MG/DL (0.2-1.0); BLOOD UREA NITROGEN 10 MG/DL (7-18); CALCIUM LEVEL 9.7 MG/DL (8.5-10.1); CARBON DIOXIDE LEVEL 28 MEQ/L (21-32); CHLORIDE LEVEL 102 MEQ/L (98-107); CREATININE FOR GFR 0.69 MG/DL (0.55-1.30); GLOMERULAR FILTRATION RATE > 60.0 (>60); GLUCOSE, FASTING 86 MG/DL (70-100); HCG, SERUM QUANTITATIVE 21070 MIU/ML; SODIUM LEVEL 136 MEQ/L (136-145); TOTAL PROTEIN 7.4 GM/DL (6.4-8.2)
== END ==
LOC: M SFHCPLAZ 09:23
PROVIDERS: ATTEND Family Medicine
DX: I10 Essential (primary) hypertension (principal); N91.2 Amenorrhea, unspecified; E03.9 Hypothyroidism, unspecified

== ENCOUNTER → 2020-10-14 | Outpatient (REF) | payer OTHER ==
[2020-10-14 14:13] LABS: HEMATOCRIT 41.8 % (36.0-47.0); HEMOGLOBIN 13.7 g/dl (12.0-15.5); MEAN CORPUSCULAR HEMOGLOBIN 27.3 pg (27.0-33.0); MEAN CORPUSCULAR HGB CONC 32.8 g/dl (32.0-36.5); MEAN CORPUSCULAR VOLUME 83.4 fl (80.0-96.0); PLATELET COUNT, AUTOMATED 228 10^3/uL (150-450); RED BLOOD COUNT 5.01 10^6/uL (4.00-5.40); WHITE BLOOD COUNT 12.3 10^3/uL (4.0-10.0)
[2020-10-14 15:35] LABS: CHLAMYDIA DNA AMPLIFICATION NEGATIVE (NEGATIVE); GC DNA AMPLIFICATION NEGATIVE (NEGATIVE)
[2020-10-14 15:39] LABS: HEPATITIS C VIRUS ABY INDEX < 0.0 INDEX (<0.8); HIV 1&2 SCREEN CENTAUR NEGATIVE (NEGATIVE)
== END ==
LOC: M PLALAB 09:14
PROVIDERS: ATTEND Specialist
DX: Z34.81 Encounter for supervision of other normal pregnancy, first trimester (principal)

== ENCOUNTER → 2020-11-12 | Outpatient (REF) | payer OTHER ==
[2020-11-13 21:04] LABS: PROTEIN, URINE AUTO NEGATIVE (NEGATIVE)
== END ==
LOC: M SFHCWAGY 14:01
PROVIDERS: ATTEND Advanced Practice Midwife
DX: O10.919 Unspecified pre-existing hypertension complicating pregnancy, unspecified trimester (principal)

== ENCOUNTER → 2020-11-12 | Outpatient (CLI) | payer OTHER | LOC: M PLALAB 09:08 | PROVIDERS: ATTEND Advanced Practice Midwife | DX: Z34.81 Encounter for supervision of other normal pregnancy, first trimester (principal); Z3A.00 Weeks of gestation of pregnancy not specified ==

== ENCOUNTER → 2020-12-02 | Outpatient (CLI) | payer OTHER | LOC: M WHC 03:19 | PROVIDERS: ATTEND Obstetrics & Gynecology | DX: Z36.89 Encounter for other specified antenatal screening (principal); Z3A.13 13 weeks gestation of pregnancy; Z53.8 Procedure and treatment not carried out for other reasons ==

== ENCOUNTER → 2020-12-31 | Outpatient (CLI) | payer OTHER ==
--- NOTE | 2020-12-31 08:57 | REP ---
INDICATION: ANATOMY COMPARISON: 10/11/2020 TECHNIQUE: Transabdominal obstetrical ultrasound with color Doppler evaluation. FINDINGS: Examination demonstrates a single live intrauterine in variable presentation. motion is identified by technologist. Placenta is noted posterior and grade 1 without evidence for placenta previa or abruption. Amniotic fluid volume is normal. Gestational age by LMP and 1st U/S 18 weeks 0 days with GURINDER 06/03/2021. Gestational age by current measurements 18 weeks 0 days with GURINDER 06/03/2021. FHR equals 149 beats per minute. BPD: 3.8 cm at 17 weeks 4 days HC: 14.8 cm at 18 weeks 0 days AC: 12.4 cm at 18 weeks 0 days FL: 2.6 cm at 18 weeks 0 days HL: 2.6 cm at 18 weeks 2 days HC/AC: 1.20 Estimated weight 219 grams (45thpercentile). Anatomical assessment demonstrates normal structures including cranium, choroid plexus, cavum, cerebellum/posterior fossa, lungs, four-chamber heart/ventricular outflow tracts, diaphragm, stomach, cord insertion/three-vessel cord, kidneys/bladder, and extremities. IMPRESSION: Single live intrauterine in variable presentation demonstrating appropriate interval growth. Limited evaluation of the facial features and spine due to positioning. Remainder of the anatomical assessment is complete and normal. <Electronically signed by Farhan Chandra > 12/31/20 0896
== END ==
LOC: M WHC 07:30
PROVIDERS: ATTEND Obstetrics & Gynecology
DX: Z36.89 Encounter for other specified antenatal screening (principal); Z3A.18 18 weeks gestation of pregnancy

== ENCOUNTER → 2021-02-18 | Outpatient (CLI) | payer OTHER ==
--- NOTE | 2021-02-18 08:46 | REP ---
INDICATION: F/U ANATOMY COMPARISON: 12/31/2020 TECHNIQUE: Transabdominal obstetrical ultrasound with color Doppler evaluation. FINDINGS: Examination demonstrates a single live intrauterine in breech presentation. motion is identified by technologist. Placenta is noted posterior and grade 1 without evidence for placenta previa or abruption. Amniotic fluid volume is normal. Cervix measures 6.0 cm in length and appears closed.. Gestational age by LMP and 1st U/S 25 weeks 0 days with GURINDER 06/03/2021. Gestational age by current measurements 24 weeks 5 days with GURINDER 06/05/2021. FHR equals 144 beats per minute. Estimated weight 752 grams (37thpercentile). Anatomical assessment demonstrates normal structures including cranium, choroid plexus, cavum, cerebellum/posterior fossa, facial features, lungs, diaphragm, stomach, cord insertion/three-vessel cord, kidneys/bladder, spine, and extremities. IMPRESSION: 1. Single live intrauterine in breech presentation demonstrating appropriate interval growth. 2. 3. In conjunction with prior examination anatomical assessment is complete and normal. <Electronically signed by Farhan Chandra > 02/18/21 0578
== END ==
LOC: M WHC 07:51
PROVIDERS: ATTEND Advanced Practice Midwife
DX: Z36.2 Encounter for other antenatal screening follow-up (principal); Z3A.25 25 weeks gestation of pregnancy; O32.1XX0 Maternal care for breech presentation, not applicable or unspecified

== ENCOUNTER → 2021-02-25 | Outpatient (REF) | payer OTHER ==
[2021-02-25 11:01] LABS: HEMATOCRIT 35.2 % (36.0-47.0); HEMOGLOBIN 11.9 g/dl (12.0-15.5); MEAN CORPUSCULAR HEMOGLOBIN 28.7 pg (27.0-33.0); MEAN CORPUSCULAR HGB CONC 33.8 g/dl (32.0-36.5); PLATELET COUNT, AUTOMATED 208 10^3/uL (150-450); RED BLOOD COUNT 4.14 10^6/uL (4.00-5.40); WHITE BLOOD COUNT 13.7 10^3/uL (4.0-10.0)
[2021-02-25 11:40] LABS: FREE T4 1.04 NG/DL (0.76-1.46); THYROID STIMULATING HORMONE 2.19 uIU/ML (0.358-3.740)
== END ==
LOC: M PLALAB 07:58
PROVIDERS: ATTEND Advanced Practice Midwife
DX: Z36.89 Encounter for other specified antenatal screening (principal); Z3A.22 22 weeks gestation of pregnancy
CPT/HCPCS: 36415; 82950; 84439; 84443; 85027; 86850; 86900; 86901; J2790

== ENCOUNTER → 2021-03-03 | Outpatient (CLI) | payer OTHER | LOC: M LAB 08:42 | PROVIDERS: ATTEND Advanced Practice Midwife | DX: Z36.89 Encounter for other specified antenatal screening (principal); Z3A.26 26 weeks gestation of pregnancy ==

== ENCOUNTER → 2021-04-08 | Outpatient (CLI) | payer OTHER ==
--- NOTE | 2021-04-08 18:42 | REP ---
INDICATION: GROWTH. COMPARISON: 02/18/2021. TECHNIQUE: Real-time sonographic evaluation of the gravid uterus performed. FINDINGS: Estimated gestational age is32 weeks 0 days, EDC 06/03/2021. Today's measurements indicate appropriate growth. Presentation: Breech Placenta posterior, grade 1, without evidence of placenta previa. heart rate is recorded at 129 beats per minute. Amniotic fluid is subjectively normal. ESSIE 11.9, normal range 8.6-24.2. Closed cervical length is measured at 5.7 cm. Biometry chart: BPD: 80 mm, 32 weeks 0 days, 51st percentile. HC: 296 mm, 32 weeks 5 days, 60th percentile AC: 278 mm, 31 weeks 6 days, 48th percentile Femur length: 62 mm, 32 weeks 1 days, 52nd percentile HC to AC ratio: 1.06, normal range 0.95-1.14. Estimated weight: 1893g, 41st percentile. IMPRESSION: Viable single intrauterine gestation as above. <Electronically signed by Good Terry > 04/08/21 [id number]
== END ==
LOC: M WHC 15:08
PROVIDERS: ATTEND Advanced Practice Midwife
DX: O10.013 Pre-existing essential hypertension complicating pregnancy, third trimester (principal); O32.1XX0 Maternal care for breech presentation, not applicable or unspecified; Z3A.32 32 weeks gestation of pregnancy

== ENCOUNTER → 2021-04-14 | Outpatient (CLI) | payer OTHER ==
--- NOTE | 2021-04-14 14:20 | REP ---
INDICATION: GESTATIONAL DIABETES, HYPERTENSION. COMPARISON: None. TECHNIQUE: Transabdominal scanning FINDINGS: Multiple ultrasonographic images of the gravid uterus shows a single living intrauterine gestation in the cephalic presentation. Doppler interrogation of the heart shows a heart rate of 167 beats per minute. The cervix measures 4.5 cm in length and is closed. Doppler interrogation of the umbilical artery shows an A\B ratio of 2.77. This is within the normal range. The placenta is posterior and not low-lying. The subjective amniotic fluid volume is within normal limits. The calculated amniotic fluid index is 11.8 within expected range 8.3 to 24.5. biophysical profile score is 2 for breathing, 2 for movement, 2 for tone, and 2 for amniotic fluid volume giving a sum total of 8/8. IMPRESSION: Limited OB ultrasound and biophysical profile as described above. <Electronically signed by Junito Lehman > 04/14/21 [id number]
== END ==
LOC: M WHC 12:56
PROVIDERS: ATTEND Advanced Practice Midwife
DX: O10.019 Pre-existing essential hypertension complicating pregnancy, unspecified trimester (principal); O24.419 Gestational diabetes mellitus in pregnancy, unspecified control

== ENCOUNTER → 2021-04-22 | Outpatient (CLI) | payer OTHER ==
[~2021-04-22] MED LIST changes: +ACET-897 PO; +AMLO1TAB24 PO; +ASPI81CH33 PO; +EFFE75CA2 PO; +IBUP80TA PO; +LABE200T32 PO; +LABE20TAB PO; +LEVO150T7 PO; +METF-839 PO; +OXYC1TAB23 PO; +PRENTAB9 PO; +TRAZ-257 PO; +TUMS750C5 PO
== END ==
LOC: M WHC 13:04
PROVIDERS: ATTEND Advanced Practice Midwife
DX: O10.019 Pre-existing essential hypertension complicating pregnancy, unspecified trimester (principal); O24.419 Gestational diabetes mellitus in pregnancy, unspecified control; Z3A.00 Weeks of gestation of pregnancy not specified

== ENCOUNTER → 2021-04-28 | Outpatient (CLI) | payer OTHER | LOC: M WHC 13:04 | PROVIDERS: ATTEND Advanced Practice Midwife | DX: O10.019 Pre-existing essential hypertension complicating pregnancy, unspecified trimester (principal); O24.419 Gestational diabetes mellitus in pregnancy, unspecified control ==

== ENCOUNTER → 2021-04-29 | Outpatient (REF) | payer OTHER ==
[~2021-04-29] MED LIST changes: -ACET-897 PO; -IBUP80TA PO; -LABE20TAB PO; -OXYC1TAB23 PO; -PRENTAB9 PO; -TUMS750C5 PO
== END ==
LOC: M SFHCWAGY 13:14
PROVIDERS: ATTEND Advanced Practice Midwife
DX: O24.415 Gestational diabetes mellitus in pregnancy, controlled by oral hypoglycemic drugs (principal)

== ENCOUNTER → 2021-05-05 | Outpatient (CLI) | payer OTHER ==
[~2021-05-05] MED LIST changes: +ACET-897 PO; +PRENTAB9 PO; +TUMS750C5 PO
--- NOTE | 2021-05-05 09:53 | REP ---
INDICATION: HYPERTENSION,GROWTH,ESSIE,BPP COMPARISON: 04/28/2021 TECHNIQUE: Transabdominal obstetrical ultrasound with color Doppler evaluation. FINDINGS: Examination demonstrates a single live intrauterine in cephalic presentation. motion is identified by technologist. Placenta is noted posterior and grade 1 without evidence for placenta previa or abruption. Amniotic fluid volume is normal. Cervix measures 4.7 cm in length and appears closed. No evidence for nuchal cord. Selected gestational age: 35 weeks 6 days with GURINDER 06/03/2021. Gestational age by current measurements 36 weeks 0 days with GURINDER 06/02/2021. FHR equals 139 beats per minute. BPD: 8.9 cm at 36 weeks 0 days HC: 32.2 cm at 36 weeks 3 days AC: 32.0 cm at 35 weeks 6 days FL: 7.0 cm at 36 weeks 0 days HL: 6.2 cm at there is 35 weeks 6 days HC/AC: 1.01 Estimated weight 2818 grams (53rdpercentile). ESSIE: 13.1 cm Biophysical profile score: 8/8 Umbilical artery SD ratio: 2.34 (1.64-3.52) IMPRESSION: Single live advanced gestation in cephalic presentation demonstrating appropriate estimated weight and growth. Amniotic fluid volume and biophysical profile score normal. <Electronically signed by Farhan Chandra > 05/05/21 0928
== END ==
LOC: M WHC 09:13
PROVIDERS: ATTEND Advanced Practice Midwife
DX: O10.013 Pre-existing essential hypertension complicating pregnancy, third trimester (principal); O24.419 Gestational diabetes mellitus in pregnancy, unspecified control; Z3A.36 36 weeks gestation of pregnancy

== ENCOUNTER 2021-05-07 16:05 | Outpatient (CLI) | payer OTHER ==
[2021-05-07] VITALS (11 sets, daily range): BP systolic 128–153; BP diastolic 78–99
[~2021-05-07] VITALS: Ht 160 cm; Wt 123.3 kg
[~2021-05-07 16:05] MED LIST changes: -ACET-897 PO; -PRENTAB9 PO; -TUMS750C5 PO
[2021-05-07] MEDS ORDERED: TUMS750C5 PO (17:10)
[2021-05-07] MEDS ORDERED: ACET-897 PO (17:10)
[2021-05-07] MEDS ORDERED: PRENTAB9 PO (17:10)
[2021-05-07] MEDS ORDERED: HOME MED LIST COMPLETE! XX SCH (17:15)
[2021-05-07] MEDS ORDERED: ACETAMINOPHEN 500 MG TAB PO ONE (17:20)
[2021-05-07 17:46] LABS: HEMATOCRIT 35.7 % (36.0-47.0); HEMOGLOBIN 12.2 g/dl (12.0-15.5); MEAN CORPUSCULAR HEMOGLOBIN 28.9 pg (27.0-33.0); MEAN CORPUSCULAR HGB CONC 34.2 g/dl (32.0-36.5); MEAN CORPUSCULAR VOLUME 84.6 fl (80.0-96.0); PLATELET COUNT, AUTOMATED 179 10^3/uL (150-450); RED BLOOD COUNT 4.22 10^6/uL (4.00-5.40)
[2021-05-07 18:07] LABS: ALT/SGPT 26 U/L (12-78); BILIRUBIN,TOTAL 0.2 MG/DL (0.2-1.0); CREATININE FOR GFR 0.44 MG/DL (0.55-1.30); GLOMERULAR FILTRATION RATE > 60.0 (>60); LDH LACTATE DEHYDROGENASE 171 U/L (84-246); URIC ACID 4.3 MG/DL (2.6-6.0)
[2021-05-07 18:19] LABS: TOTAL PROTEIN,RANDOM URINE 17.2 MG/DL (0.0-12.0)
--- NOTE | 2021-05-07 20:22 | IPN ---
PROGRESS NOTE DATE: 05/07/2021 SUBJECTIVE: Maxime is a 30-year-old 4, para 2-1-0-3, 36-1/7 weeks with an estimated date of confinement (EDC) of 06/03/2021 by last menstrual period and confirmed by first trimester ultrasound. She presents to labor and delivery today with complaint of headache and bilateral pitting edema. She denies vaginal bleeding, leakage of fluid and contractions. The fetus has been active. She denies visual disturbances, epigastric pain and right upper quadrant discomfort. [facility] care was [facility] at [facility] in the first trimester. Her course complicated by history of chronic hypertension, currently managed with labetalol 200 mg by mouth twice a day, prior section times three, hypothyroid on 175 mcg of levothyroxine, panorama low risk female, A2 gestational diabetes that is well-managed on metformin 500 mg by mouth twice a day, depression and anxiety, which she is taking Effexor 175 mg, decreased to 75 mg, and trazodone for sleep. OBSTETRIC HISTORY: 1. December 11, 2003 - 36 weeks gestation, 6 pounds 11 ounce male, section, preeclampsia. 2. January 27, 2008 - 39 weeks, 7 pounds 11 ounce female, section, gestational hypertension. 3. September 04, 2010 - 39 weeks, 7 pounds 10 ounce female, section, gestational hypertension. OBSTETRIC LABORATORIES: O negative, antibody screen negative. Syphilis negative. Gonorrhea and chlamydia negative. Hepatitis B negative. HIV negative. Hepatitis C negative. Rubella immune. Gestational diabetic screening abnormal at 158, 3-hour glucose tolerance test abnormal, fasting 95, 1-hour 183, 2-hour 168 and fasting 88. Urine culture: No growth. Group B Streptococcus (GBS) is positive. PAST MEDICAL HISTORY: 1. Hypertension. 2. Anxiety. 3. Hypothyroid. 4. Depression. 5. Allergic rhinitis. 6. Hyperlipidemia. 7. Endometriosis. PAST SURGICAL HISTORY: section times three. FAMILY HISTORY: Cervical cancer, hepatitis C, heart disease, stomach issues and chronic obstructive pulmonary disease (COPD). SOCIAL HISTORY: The patient is single. She is a former smoker, denies alcohol use, reports marijuana use, denies history of abuse, physical, sexual and emotional. ALLERGIES: PENICILLIN AND AMOXICILLIN. Both of these cause anaphylaxis. CURRENT MEDICATIONS: - labetalol 200 mg by mouth twice a day - metformin 500 mg by mouth twice a day - Effexor 75 mg daily - trazodone - levothyroxine 175 mcg daily OBJECTIVE: GENERAL: Upon arrival, the patient is alert and oriented. SKIN: [place], warm and dry. VITAL SIGNS: Temperature 96.3, pulse 71, respiratory rate 18, blood pressure 149/89, followup blood pressure is 128/82. HEART RATE: About 125 with moderate variability, positive accelerations, no decelerations. There are some occasional contractions. ABDOMEN: Gravid. Cephalic presentation. LABORATORY DATA: She did undergo some lab draws here. Her spot urine stable at 0.15. AST 15, ALT 26, LDH 171. Uric acid 4.3. Hemoglobin 12.2, hematocrit 35.7, platelets 179. ASSESSMENT: Intrauterine at 36-1/7 weeks, heart rate category 1, chronic hypertension, headache now resolved following administration of Tylenol and eating a regular meal. PLAN: Discharge the patient home. She is scheduled for a repeat section on May 13, 2021 as well as a final biophysical profile on May 12, 2021. She is reminded to keep those appointments. I did review signs and symptoms of labor, movement counts, danger signs, access to her care provider. I have answered all of her questions and she does desire discharge.
== END 2021-05-07 19:34 | disposition home or self-care (01) ==
LOC: M LDO 16:05
PROVIDERS: ATTEND Advanced Practice Midwife
DX: O26.893 Other specified pregnancy related conditions, third trimester (principal); Z3A.36 36 weeks gestation of pregnancy; R51.9 Headache, unspecified; R60.9 Edema, unspecified; O10.013 Pre-existing essential hypertension complicating pregnancy, third trimester; O34.211 Maternal care for low transverse scar from previous cesarean delivery; O99.283 Endocrine, nutritional and metabolic diseases complicating pregnancy, third trimester; E03.9 Hypothyroidism, unspecified; O24.415 Gestational diabetes mellitus in pregnancy, controlled by oral hypoglycemic drugs; O99.343 Other mental disorders complicating pregnancy, third trimester; F41.9 Anxiety disorder, unspecified; F32.9 Major depressive disorder, single episode, unspecified; O99.820 Streptococcus B carrier state complicating pregnancy; Z88.0 Allergy status to penicillin; Z88.1 Allergy status to other antibiotic agents

== ENCOUNTER → 2021-05-08 | Outpatient (CLI) | payer OTHER ==
[~2021-05-08] MED LIST changes: +ACET-897 PO; +PRENTAB9 PO; +TUMS750C5 PO
== END ==
LOC: M LABSMTC 09:42
PROVIDERS: ATTEND Anesthesiology
DX: Z01.818 Encounter for other preprocedural examination (principal); Z11.52 Encounter for screening for COVID-19

== ENCOUNTER → 2021-05-12 | Outpatient (CLI) | payer OTHER ==
[~2021-05-12] MED LIST changes: +IBUP80TA PO; +OXYC1TAB23 PO
--- NOTE | 2021-05-12 13:46 | REP ---
INDICATION: HYPERTENSION,BPP AND ESSIE. COMPARISON: 05/05/2021. TECHNIQUE: Real-time sonographic evaluation of gravid uterus performed. FINDINGS: There is a single living intrauterine gestation. The estimated gestational age is reportedly 36 weeks 6 days, EDC 06/03/2021. position cephalic. Placenta posterior and grade 2 with no previa. heart rate 143 beats per minute. Amniotic fluid within normal limits, ESSIE 9.2, normal range 7.5-24.5. Biophysical profile score 8/8. SD ratio umbilical artery 2.24, normal 1.60-3.44. RI 0.55, normal 0.43-0.70. IMPRESSION: Biophysical profile score 8/8. <Electronically signed by Good Terry > 05/12/21 [id number]
== END ==
LOC: M WHC 13:00
PROVIDERS: ATTEND Advanced Practice Midwife
DX: O10.013 Pre-existing essential hypertension complicating pregnancy, third trimester (principal); O24.419 Gestational diabetes mellitus in pregnancy, unspecified control; Z3A.36 36 weeks gestation of pregnancy

== ENCOUNTER → 2022-07-01 | Outpatient (CLI) | payer OTHER ==
[~2022-07-01] MED LIST changes: -LABE200T32 PO; +LABE200T5 PO; +LABE20TAB PO
[2022-07-01 11:18] LABS: ALBUMIN 3.8 GM/DL (3.2-5.2); ALT/SGPT 18 U/L (12-78); BILIRUBIN,TOTAL 0.4 MG/DL (0.2-1.0); BLOOD UREA NITROGEN 13 MG/DL (7-18); CALCIUM LEVEL 9.3 MG/DL (8.5-10.1); CARBON DIOXIDE LEVEL 29 MEQ/L (21-32); CHLORIDE LEVEL 104 MEQ/L (98-107); CREATININE FOR GFR 0.78 MG/DL (0.55-1.30); GLOMERULAR FILTRATION RATE > 60.0 (>60); GLUCOSE, FASTING 103 MG/DL (70-100); SODIUM LEVEL 136 MEQ/L (136-145); TOTAL PROTEIN 7.4 GM/DL (6.4-8.2)
== END ==
LOC: M PLALAB 08:55
PROVIDERS: ATTEND Physician Assistant
DX: E03.9 Hypothyroidism, unspecified (principal)

== ENCOUNTER → 2022-11-27 | Outpatient (CLI) | payer OTHER ==
[2022-11-27 10:41] LABS: ALBUMIN 3.7 G/DL (3.2-5.2); ALKALINE PHOSPHATASE 76 U/L (46-116); ALT/SGPT 12 U/L (7.0-40); AST/SGOT 14 U/L (<34); BILIRUBIN,TOTAL 0.3 MG/DL (0.3-1.2); BLOOD UREA NITROGEN 11 MG/DL (9-23); CARBON DIOXIDE LEVEL 29 MMOL/L (20-31); CHLORIDE LEVEL 103 MMOL/L (98-107); CHOLESTEROL LEVEL 169 MG/DL (<200); CHOLESTEROL RISK RATIO 3.33 (<5); CREATININE FOR GFR 0.72 MG/DL (0.55-1.30); GLOMERULAR FILTRATION RATE > 60.0 (>60); GLUCOSE, FASTING 93 MG/DL (60-100); HDL CHOLESTEROL 50.6 MG/DL (>40); LDL CHOLESTEROL 103.2 MG/DL (<100); NON-HDL-C 118.4 MG/DL; POTASSIUM SERUM 3.8 MMOL/L (3.5-5.1); SODIUM LEVEL 138 MMOL/L (136-145); TOTAL PROTEIN 6.7 G/DL (5.7-8.2); TRIGLYCERIDES LEVEL 76 MG/DL (<150)
[2022-11-27 10:44] LABS: FREE T4 1.17 NG/DL (0.89-1.76); THYROID STIMULATING HORMONE 2.636 uIU/ML (0.55-4.78)
== END ==
LOC: M PLALAB 07:42
PROVIDERS: ATTEND Physician Assistant
DX: E03.9 Hypothyroidism, unspecified (principal); I10 Essential (primary) hypertension; F17.211 Nicotine dependence, cigarettes, in remission

== ENCOUNTER 2024-08-03 16:30 | Emergency (ER) | payer OTHER ==
[~2024-08-03] VITALS: Ht 160 cm; Wt 106.7 kg
[~2024-08-03 16:30] MED LIST changes: +EMTRICITABINE/TENOFOVIR 200MG/300MG TABLET PO SCH; +RALTEGRAVIR 400 MG TAB (ISENTRESS) PO SCH
[2024-08-03] MEDS ORDERED: TOBR0.3S37 (17:00)
[2024-08-03 18:07] LABS: BASO # 0.1 10^3/uL (0.0-0.2); BASO % 0.8 % (0.0-1.0); EOS # 0.4 10^3/uL (0.0-0.5); EOS % 3.2 % (0.0-3.0); HEMATOCRIT 39.3 % (36.0-47.0); HEMOGLOBIN 13.1 g/dl (12.0-15.5); LYMPH # 3.6 10^3/uL (1.5-5.0); LYMPH % 32.9 % (24.0-44.0); MEAN CORPUSCULAR HEMOGLOBIN 27.5 pg (27.0-33.0); MEAN CORPUSCULAR HGB CONC 33.3 g/dl (32.0-36.5); MEAN CORPUSCULAR VOLUME 82.4 fl (80.0-96.0); MONO # 0.7 10^3/uL (0.0-0.8); MONO % 6.1 % (2.0-8.0); NEUTROPHILS # 6.3 10^3/uL (1.5-8.5); NEUTROPHILS % 56.7 % (36.0-66.0); PLATELET COUNT, AUTOMATED 246 10^3/uL (150-450); RED BLOOD COUNT 4.77 10^6/uL (4.00-5.40)
[2024-08-03 18:32] LABS: ALBUMIN 3.8 G/DL (3.2-5.2); ALKALINE PHOSPHATASE 81 U/L (35-104); ALT/SGPT 12 U/L (7.0-40); AST/SGOT < 8 U/L (<34); BILIRUBIN,TOTAL 0.3 MG/DL (0.3-1.2); BLOOD UREA NITROGEN 15 MG/DL (9-23); CALCIUM LEVEL 9.6 MG/DL (8.5-10.1); CARBON DIOXIDE LEVEL 29 MMOL/L (20-31); CHLORIDE LEVEL 104 MMOL/L (98-107); CREATININE FOR GFR 0.78 MG/DL (0.55-1.30); GLOMERULAR FILTRATION RATE > 60.0 (>60); GLUCOSE, FASTING 89 MG/DL (60-100); POTASSIUM SERUM 3.8 MMOL/L (3.5-5.1); SODIUM LEVEL 138 MMOL/L (136-145); TOTAL PROTEIN 7.5 G/DL (5.7-8.2)
[2024-08-03 18:53] LABS: HEPATITIS B SURFACE ANTIGEN NEGATIVE (NEGATIVE)
[2024-08-03 19:01] LABS: HEPATITIS B SURFACE ANTIBODY NEGATIVE (POSITIVE)
[2024-08-03 19:06] LABS: HIV SCREEN CENTAUR EXPOSED NEGATIVE (NEGATIVE)
[2024-08-03 19:13] LABS: HEPATITIS B CORE ANTIBODY IGM NEGATIVE (NEGATIVE); HEPATITIS C VIRUS ABY INDEX < 0.02 INDEX (<0.8)
[2024-08-03] MEDS: ACETAMINOPHEN 500 MG TAB PO ONE (19:36)
[2024-08-03] MEDS: BOOSTRIX VACCINE (TETANUS/DIPHTH/ACEL. PERTUSSIS) 0.5ML SYR IM.IMMUN ONE (19:37)
[2024-08-03 19:54] LABS: HCG, SERUM QUALITATIVE NEGATIVE (NEGATIVE)
[2024-08-03] MEDS ORDERED: EXPOSURE KIT-ADULT 7 DAY SUPPLY PO ONE (19:55)
[2024-08-03] MEDS: RALTEGRAVIR 400 MG TAB (ISENTRESS) PO ONE (20:38)
[2024-08-03] MEDS: EMTRICITABINE/TENOFOVIR 200MG/300MG TABLET PO ONE (20:38)
[2024-08-03 20:39] VITALS: BP 131/98; TEMP 97.7; O2SAT 98
== END 2024-08-03 20:46 | disposition home or self-care (01) ==
LOC: M ED 16:30
DX: Z77.21 Contact with and (suspected) exposure to potentially hazardous body fluids (principal); W46.0XXA Contact with hypodermic needle, initial encounter; F12.10 Cannabis abuse, uncomplicated; Z23 Encounter for immunization; Z88.0 Allergy status to penicillin; Z79.899 Other long term (current) drug therapy

== ENCOUNTER 2024-08-31 09:54 | Emergency (ER) | payer OTHER ==
[~2024-08-31] VITALS: Ht 160 cm; Wt 108.1 kg
[~2024-08-31 09:54] MED LIST changes: -EMTRICITABINE/TENOFOVIR 200MG/300MG TABLET PO SCH; -RALTEGRAVIR 400 MG TAB (ISENTRESS) PO SCH; +TOBR0.3S37
[2024-08-31] MEDS ORDERED: IBUP200T46 PO (10:04)
[2024-08-31] MEDS: KETOROLAC 30 MG/ML 1ML VIAL IM ONE (11:00)
[2024-08-31] MEDS ORDERED: PRED20TA PO (13:29)
[2024-08-31 13:46] VITALS: BP 111/84; TEMP 98; O2SAT 98
== END 2024-08-31 13:50 | disposition home or self-care (01) ==
LOC: M ED 09:54
DX: M17.11 Unilateral primary osteoarthritis, right knee (principal); K21.9 Gastro-esophageal reflux disease without esophagitis; R51.9 Headache, unspecified; E03.9 Hypothyroidism, unspecified; Z79.899 Other long term (current) drug therapy; Z88.0 Allergy status to penicillin
CPT/HCPCS: 96372; 99284; J1885

== ENCOUNTER → 2024-12-12 | Outpatient (CLI) | payer OTHER ==
[~2024-12-12] MED LIST changes: +IBUP200T46 PO; +PRED20TA PO
[2024-12-12 08:19] LABS: BASO # 0.1 10^3/uL (0.0-0.2); BASO % 0.8 % (0.0-1.0); EOS # 0.3 10^3/uL (0.0-0.5); EOS % 3.2 % (0.0-3.0); HEMATOCRIT 39.7 % (36.0-47.0); LYMPH # 2.5 10^3/uL (1.5-5.0); LYMPH % 29.4 % (24.0-44.0); MEAN CORPUSCULAR HEMOGLOBIN 25.9 pg (27.0-33.0); MEAN CORPUSCULAR HGB CONC 32.7 g/dl (32.0-36.5); MEAN CORPUSCULAR VOLUME 79.1 fl (80.0-96.0); MONO # 0.7 10^3/uL (0.0-0.8); MONO % 7.7 % (2.0-8.0); NEUTROPHILS % 58.7 % (36.0-66.0); PLATELET COUNT, AUTOMATED 249 10^3/uL (150-450); RED BLOOD COUNT 5.02 10^6/uL (4.00-5.40); WHITE BLOOD COUNT 8.6 10^3/uL (4.0-10.0)
[2024-12-12 08:48] LABS: ALKALINE PHOSPHATASE 82 U/L (35-104); ALT/SGPT 19 U/L (7.0-40); AST/SGOT 13 U/L (<34); BILIRUBIN,TOTAL 0.7 MG/DL (0.3-1.2); BLOOD UREA NITROGEN 11 MG/DL (9-23); CARBON DIOXIDE LEVEL 25 MMOL/L (20-31); CHLORIDE LEVEL 105 MMOL/L (98-107); CHOLESTEROL LEVEL 183 MG/DL (<200); CHOLESTEROL RISK RATIO 3.65 (<5); GLOMERULAR FILTRATION RATE > 60.0 (>60); GLUCOSE, FASTING 99 MG/DL (60-100); HDL CHOLESTEROL 50.1 MG/DL (>40); LDL CHOLESTEROL 114.5 MG/DL (<100); NON-HDL-C 132.9 MG/DL; POTASSIUM SERUM 4.2 MMOL/L (3.5-5.1); SODIUM LEVEL 138 MMOL/L (136-145); TOTAL PROTEIN 7.6 G/DL (5.7-8.2); TRIGLYCERIDES LEVEL 92 MG/DL (<150)
[2024-12-12 08:50] LABS: THYROID STIMULATING HORMONE 2.007 uIU/ML (0.55-4.78)
[2024-12-12 08:51] LABS: FREE T4 1.29 NG/DL (0.89-1.76)
== END ==
LOC: M LAB 07:41
DX: Z00.8 Encounter for other general examination (principal)

== ENCOUNTER → 2025-04-25 | Outpatient (CLI) | payer OTHER | LOC: M PLAIMG 07:42 | PROVIDERS: ATTEND Neuromusculoskeletal Medicine, Sports Medicine | DX: M25.561 Pain in right knee (principal); M67.51 Plica syndrome, right knee ==

== ENCOUNTER 2025-06-05 11:56 | Day surgery (SDC) | payer OTHER ==
[~2025-06-05] VITALS: Ht 160 cm; Wt 104.3 kg
[~2025-06-05 11:56] MED LIST changes: +HYDR-3490 PO; +IRBE150T27 PO; +ceFAZolin SOD 2 GM IV ONCE IV ONE
[2025-06-05] MEDS: LR 1,000 ML IV SCH (12:21)
[2025-06-05] MEDS ORDERED: LIDOCAINE 2% 100 MG/5 ML SDV (FOR ANES.) As Ordered ONE (13:16)
[2025-06-05] MEDS ORDERED: MIDAZOLAM INJ 2 MG/2 ML VIAL As Ordered ONE (13:16)
[2025-06-05] MEDS ORDERED: dexAMETHasone 4 MG/ML 1 ML VIAL As Ordered ONE (13:17)
[2025-06-05] MEDS ORDERED: KETOROLAC 30 MG/ML 1 ML VIAL As Ordered ONE (13:17)
[2025-06-05] MEDS ORDERED: ONDANSETRON 4MG 2ML VIAL As Ordered ONE (13:17)
[2025-06-05] MEDS ORDERED: GLYCOPYRROLATE INJ 0.2 MG/ML 2 ML VIAL As Ordered ONE (13:19)
[2025-06-05] MEDS ORDERED: ACETAMINOPHEN 1000MG/100ML IV BAG As Ordered ONE (13:47)
[2025-06-05] MEDS ORDERED: HYDROmorphone HCL 2 MG/ML 1 ML VIAL As Ordered ONE (13:59)
[2025-06-05] MEDS: LIDOCAINE W/EPINEPHrine 1% 20 ML VIAL As Ordered ONE (14:17)
[2025-06-05] MEDS: MORPHINE 10 MG/ML 1 ML VIAL As Ordered ONE (14:35)
[2025-06-05] MEDS ORDERED: ONDANSETRON 4MG 2ML VIAL IV PRN (14:40)
[2025-06-05] MEDS ORDERED: MORPHINE 4 MG/ML 1 ML VIAL IV PRN (14:40)
[2025-06-05] MEDS ORDERED: HYDR-3713 PO (15:01)
[2025-06-05] MEDS ORDERED: SUZE50TA PO (15:01)
[2025-06-05 15:43] VITALS: BP 126/79; TEMP 98.7; O2SAT 99
== END 2025-06-05 16:12 | disposition home or self-care (01) ==
LOC: M SDC 11:56
PROVIDERS: ATTEND Neuromusculoskeletal Medicine, Sports Medicine
DX: M23.41 Loose body in knee, right knee (principal); M65.161 Other infective (teno)synovitis, right knee; M17.11 Unilateral primary osteoarthritis, right knee; I10 Essential (primary) hypertension; E03.9 Hypothyroidism, unspecified; F41.9 Anxiety disorder, unspecified; F32.A Depression, unspecified; G43.909 Migraine, unspecified, not intractable, without status migrainosus; Z79.899 Other long term (current) drug therapy; Z88.0 Allergy status to penicillin
CPT/HCPCS: 29877; 81025; J0131; J0665; J0690; J1100; J1171; J1596; J1885; J2250; J2405; J3010

== ENCOUNTER → 2025-08-06 | Outpatient (CLI) | payer OTHER ==
[~2025-08-06] MED LIST changes: +HYDR-3713 PO; +SUZE50TA PO; -ceFAZolin SOD 2 GM IV ONCE IV ONE
[2025-08-06 09:23] LABS: BASO # 0.1 10^3/uL (0.0-0.2); BASO % 0.9 % (0.0-1.0); EOS # 0.2 10^3/uL (0.0-0.5); EOS % 3.3 % (0.0-3.0); LYMPH # 2.0 10^3/uL (1.5-5.0); LYMPH % 31.3 % (24.0-44.0); MONO # 0.5 10^3/uL (0.0-0.8); MONO % 7.1 % (2.0-8.0); NEUTROPHILS # 3.6 10^3/uL (1.5-8.5); NEUTROPHILS % 57.1 % (36.0-66.0); PLATELET COUNT, AUTOMATED 260 10^3/uL (150-450)
[2025-08-06 09:42] LABS: ALT/SGPT 18 U/L (7.0-40); AST/SGOT 16 U/L (<34); CALCIUM LEVEL 9.6 MG/DL (8.5-10.1); CARBON DIOXIDE LEVEL 29 MMOL/L (20-31); CHLORIDE LEVEL 103 MMOL/L (98-107); CHOLESTEROL LEVEL 163 MG/DL (<200); CHOLESTEROL RISK RATIO 3.20 (<5); CREATININE FOR GFR 0.76 MG/DL (0.55-1.30); GLOMERULAR FILTRATION RATE > 90.0 (>60); LDL CHOLESTEROL 102.2 MG/DL (<100); NON-HDL-C 112.2 MG/DL; POTASSIUM SERUM 4.0 MMOL/L (3.5-5.1); SODIUM LEVEL 139 MMOL/L (136-145); TRIGLYCERIDES LEVEL 50 MG/DL (<150)
[2025-08-06 09:44] LABS: FREE T4 1.39 NG/DL (0.89-1.76)
[2025-08-06 09:52] LABS: ESTIMATED AVERAGE GLUCOSE 108.0 MG/DL (60-110)
== END ==
LOC: M LAB 08:41
DX: Z00.8 Encounter for other general examination (principal)